=== PATIENT | male | born 1955 | race Caucasian/White ===

== ENCOUNTER 2021-12-05 | Inpatient (IN) | payer MEDICARE, MEDICAID ==
[~2021-12-05] VITALS: Ht 177.8 cm; Wt 100.1 kg
[~2021-12-05] MED LIST: ASPI-999 PO; ATOR80TA76 PO; CLOP75TA28 PO; LISI20TA26 PO; METF-397 PO; METO50TA7 PO; PARO30TA3 PO; RANO500T3 PO
[2021-12-05] MEDS ORDERED: NS IV 1000 ML 0 ML ONE (00:25)
[2021-12-05] MEDS ORDERED: NS IV 1000 ML 1,000 ML IV STA (00:25)
[2021-12-05] MEDS ORDERED: HEParin DRIP 25000 UNIT/500ML 500 ML IV ONE (00:29)
[2021-12-05 00:30] LABS: BASOPHILS # (AUTO) 0.1 10^3/uL (0.0-0.1); BASOPHILS % (AUTO) 1 % (0-10); EOSINOPHILS # (AUTO) 0.6 10^3/uL (0.0-0.3); EOSINOPHILS % (AUTO) 7 % (0-10); HEMATOCRIT 39 % (40-54); LYMPHOCYTES # (AUTO) 2.1 10^3/uL (1.0-4.0); LYMPHOCYTES % (AUTO) 25 % (12-44); MEAN CORPUSCULAR HEMOGLOBIN 29 pg (25-34); MEAN CORPUSCULAR HGB CONC 33 g/dL (32-36); MEAN CORPUSCULAR VOLUME 86 fL (80-99); MEAN PLATELET VOLUME 11.7 fL (9.0-12.2); MONOCYTES # (AUTO) 0.7 10^3/uL (0.0-1.0); MONOCYTES % (AUTO) 8 % (0-12); NEUTROPHILS % (AUTO) 59 % (42-75); PLATELET COUNT 234 10^3/uL (130-400); WHITE BLOOD COUNT 8.5 10^3/uL (4.3-11.0)
[2021-12-05] MEDS ORDERED: HEParin 1000 UNIT/ML (10ML VIAL) FOR BOLUS IV PRN ×2 (00:30→04:00)
[2021-12-05] MEDS ORDERED: ASPIRIN 81 MG CHEW (CHILDREN'S ASA) PO ONE (00:30)
[2021-12-05 00:32] LABS: PROTHROMBIN TIME PATIENT 13.6 SEC (12.2-14.7)
[2021-12-05] MEDS: HEParin DRIP 25000 UNIT/500ML 500 ML IV SCH ×2 (00:35→02:03)
--- NOTE | 2021-12-05 00:37 | ED Chest Pain ---
General Chief Complaint: Chest Pain Stated Complaint: CHEST PAIN Source: patient (ALFRED HERNANDEZ MD) History of Present Illness Date Seen by Provider: Dec 05, 2021 Time Seen by Provider: 00:06 Initial Comments 66-year-old male presenting with complaints of chest pain. He states that he has been having chest pain off and on for the last day or 2. He admitted having more constant pain since noon on Sunday but he is inconsistent in his times and complaints. He had been out fishing and admits to smoking marijuana. He did take a nitroglycerin pill around 8 PM. He did take his regular nighttime meds including a sleeping pill. He was continued to have chest pain and with a history of prior coronary artery disease with bypass and stenting he was finally brought to the emergency department by his family. He denies having any nausea, diaphoresis, increased shortness of breath. He states that the pain he is having feels similar to when he had to have a stent placed. His last stent was placed about 3 years ago in [place] but he cannot remember the repairer general name Timing/Duration: intermittent Severity/Quality: severe Location: substernal Prior CP/Workup: cardiac cath, heart attack, other (bypass and stenting) ASA po RAC SPECIALIST: Yes NTG SL RAC SPECIALIST: Yes (1 pill about 1999) Associated Symptoms: No abdominal pain, No back pain, No diaphoresis; dizziness; No edema; fatigue; No fever/chills, No headache, No heartburn, No nausea/vomiting, No rash, No shortness of breath, No syncope (ALFRED HERNANDEZ MD) Allergies and Home Medications Allergies Coded Allergies: No Known Drug Allergies (Unverified , 12/05/21) Patient Home Medication List Home Medication List Reviewed: Yes (ALFRED HERNANDEZ MD) Aspirin (Aspirin) 81 Mg Tab.chew, 81 MG PO DAILY, (Reported) Entered as Reported by: HARJINDER CHE on 05/02/19 1219 Aspirin (Aspirin EC) 81 Mg Tablet.dr, 81 MG PO DAILY, (Reported) Entered as Reported by: RAYMOND HESTER on 12/05/21 1321 Last Action: Reviewed Atorvastatin Calcium (Atorvastatin Calcium) 80 Mg Tablet, 80 MG PO DAILY, (Reported) Entered as Reported by: HARJINDER CHE on 05/02/19 1219 Atorvastatin Calcium (Atorvastatin Calcium) 80 Mg Tablet, 80 MG PO HS, (Reported) Entered as Reported by: RAYMOND HESTER on 12/05/211320 Last Action: Reviewed Clopidogrel Bisulfate (Clopidogrel) 75 Mg Tablet, 75 MG PO DAILY, (Reported) Entered as Reported by: HARJINDER CHE on 05/02/191218 Clopidogrel Bisulfate (Clopidogrel) 75 Mg Tablet, 75 MG PO DAILY, (Reported) Entered as Reported by: RAYMOND HESTER on 12/05/211320 Last Action: Reviewed Cyclobenzaprine HCl (Cyclobenzaprine HCl) 10 Mg Tablet, 10 MG PO BID PRN for MUSCLE SPASMS, (Reported) Entered as Reported by: RAYMOND HESTER on 12/05/211320 Last Action: Reviewed Lisinopril (Lisinopril) 20 Mg Tablet, 20 MG PO DAILY, (Reported) Entered as Reported by: HARJINDER CHE on 05/02/191218 Lisinopril (Lisinopril) 30 Mg Tablet, 30 MG PO DAILY, (Reported) Entered as Reported by: RAYMOND HESTER on 12/05/211320 Last Action: Reviewed Metformin HCl (Metformin HCl) 500 Mg Tablet, 500 MG PO BID, (Reported) Entered as Reported by: HARJINDER CHE on 05/02/191218 Metformin HCl (Metformin HCl) 500 Mg Tablet, 500 MG PO BID, (Reported) Entered as Reported by: RAYMOND HESTER on 12/05/211320 Last Action: Reviewed Metoprolol Succinate (Metoprolol Succinate) 50 Mg Tab.er.24h, 50 MG PO DAILY, (Reported) Entered as Reported by: HARJINDER CHE on 05/02/191218 Metoprolol Succinate (Metoprolol Succinate) 50 Mg Tab.er.24h, 50 MG PO DAILY, (Reported) Entered as Reported by: RAYMOND HESTER on 12/05/211320 Last Action: Reviewed Paroxetine HCl (Paroxetine HCl) 30 Mg Tablet, 30 MG PO DAILY, (Reported) Entered as Reported by: HARJINDER CHE on 05/02/191218 Paroxetine HCl (Paroxetine HCl) 30 Mg Tablet, 30 MG PO DAILY, (Reported) Entered as Reported by: RAYMOND HESTER on 7/25/22 1321 Last Action: Reviewed Ranolazine (Ranexa) 500 Mg Tab.er.12h, 500 MG PO BID, (Reported) Entered as Reported by: HARJINDER CHE on 05/02/19 1219 Review of Systems Review of Systems Constitutional: No chills, No fever EENTM: No Symptoms Reported Respiratory: No Symptoms Reported Cardiovascular: See HPI, Chest Pain Gastrointestinal: No Symptoms Reported Genitourinary: No Symptoms Reported Musculoskeletal: no symptoms reported Skin: no symptoms reported Psychiatric/Neurological: No Symptoms Reported (ALFRED HERNANDEZ MD) Past Qoxmela-Onyael-Faznwv Hx Patient Social History Tobacco Use?: Yes Tobacco type used: Cigarettes Smoking Status: Current Everyday Smoker Substance use?: Yes Substance type: Marijuana Alcohol Use?: No Pt feels they are or have been: No (ALFRED HERNANDEZ MD) Immunizations Up To Date First/Initial COVID19 Vaccinat: date? Second COVID19 Vaccination Jimmie: date? COVID19 Vaccine Mine Supervisor: Moderna? (ALFRED HERNANDEZ MD) Past Medical History Surgery/Hospitalization HX: triple bypass, cardiac stents x 6, DM, (ALFRED HERNANDEZ MD) Physical Exam Vital Signs Vital Signs - First Documented 12/05/21 12/05/21 00:00 00:35 Temp 36.4 Pulse 87 Resp 22 B/P (MAP) 137/100 (112) Pulse Ox 95 O2 Delivery Room Air O2 Flow Rate 2.00 (GEOVANY PANDEY MD) Vital Signs Capillary Refill : Less Than 3 Seconds (ALFRED HERNANDEZ MD) Height, Weight, BMI Height: '" Weight: lbs. oz. kg; BMI Method: General Appearance: Chronically ill HEENT: PERRL/EOMI, Pharynx Normal Neck: Full Range of Motion, Supple Respiratory: Chest Non Tender, Lungs Clear Cardiovascular: Regular Rate, Rhythm, Normal Peripheral Pulses Gastrointestinal: Normal Bowel Sounds, No Pulsatile Mass, Non Tender, Soft Rectal: Deferred Extremity: Normal Capillary Refill, Normal Inspection, No Pedal Edema Neurologic/Psychiatric: Alert, Oriented x3 Skin: Normal Color, Warm/Dry (ALFRED HERNANDEZ MD) Critical Care Note Critical Care Start Time: 01:24 Stop Time: 02:47 Total Time (minutes) 30 minutes critical care time in the evaluation and management of this patient with chest pain, hypotension. Time includes initial evaluation and management of hypotension with fluid boluses, examination, review and interpretation of laboratory studies, discussion with cardiology, discussion with patient, review of the chest x-ray, discussion with hospitalist/admitting provider. (GEOVANY PANDEY MD) Progress/Results/Core Measures Results/Orders Lab Results Laboratory Tests Test 12/05/21 00:15 12/05/21 02:20 Range/Units White Blood Count 8.5 7.3 4.3-11.0 10^3/uL Red Blood Count 4.54 3.85 L 4.30-5.52 10^6/uL Hemoglobin 13.0 L 11.2 L 13.3-17.7 g/dL Hematocrit 39 L 34 L 40-54 % Mean Corpuscular Volume 86 88 80-99 fL Mean Corpuscular Hemoglobin 29 29 25-34 pg Mean Corpuscular Hemoglobin Concent 33 33 32-36 g/dL Red Cell Distribution Width 15.0 H 15.1 H 10.0-14.5 % Platelet Count 234 177 130-400 10^3/uL Mean Platelet Volume 11.7 11.0 9.0-12.2 fL Immature Granulocyte % (Auto) 0 % Neutrophils (%) (Auto) 59 42-75 % Lymphocytes (%) (Auto) 25 12-44 % Monocytes (%) (Auto) 8 0-12 % Eosinophils (%) (Auto) 7 0-10 % Basophils (%) (Auto) 1 0-10 % Neutrophils # (Auto) 5.0 1.8-7.8 10^3/uL Lymphocytes # (Auto) 2.1 1.0-4.0 10^3/uL Monocytes # (Auto) 0.7 0.0-1.0 10^3/uL Eosinophils # (Auto) 0.6 H 0.0-0.3 10^3/uL Basophils # (Auto) 0.1 0.0-0.1 10^3/uL Immature Granulocyte # (Auto) 0.0 0.0-0.1 10^3/uL Prothrombin Time 13.6 14.9 H 12.2-14.7 SEC INR Comment 1.0 1.1 0.8-1.4 Activated Partial Thromboplast Time 26 68 H 24-35 SEC Sodium Level 138 135-145 MMOL/L Potassium Level 5.7 H 3.6-5.0 MMOL/L Chloride Level 102 98-107 MMOL/L Carbon Dioxide Level 24 21-32 MMOL/L Anion Gap 12 5-14 MMOL/L Blood Urea Nitrogen 32 H 7-18 MG/DL Creatinine 3.43 H 0.60-1.30 MG/DL Estimat Glomerular Filtration Rate 19 BUN/Creatinine Ratio 9 Glucose Level 122 H 70-105 MG/DL Calcium Level 10.7 H 8.5-10.1 MG/DL Corrected Calcium 8.5-10.1 MG/DL Magnesium Level 1.8 1.6-2.4 MG/DL Total Bilirubin 0.5 0.1-1.0 MG/DL Aspartate Amino Transf (AST/SGOT) 19 5-34 U/L Alanine Aminotransferase (ALT/SGPT) 17 0-55 U/L Alkaline Phosphatase 132 40-136 U/L Myoglobin 358.0 H <72.0 NG/ML Troponin I < 0.30 <0.30 NG/ML Pro-B-Type Natriuretic Peptide 193.3 H <125.0 PG/ML Total Protein 7.7 6.4-8.2 GM/DL Albumin 4.6 H 3.2-4.5 GM/DL Lipase 55 8-78 U/L (GEOVANY PANDEY MD) My Orders Orders - GEOVANY PANDEY MD D50w (Emergency) Syringe (Dextrose 50% 5 (12/05/21 01:45) Insulin (Regular) Human (Novolin R (Per (12/05/21 01:45) Sodium Bicarbonate 8.4% Syr (Sodium Bica (12/05/21 01:45) Chest 1 View, Ap/Pa Only (12/05/21 01:55) Accucheck Prn (12/05/21 01:58) Partial Thromboplastin Time (12/05/21 01:59) Protime With Inr (12/05/21 01:59) Cbc No Diff (12/05/21 01:59) Cbc No Diff (12/08/21 05:00) Cbc No Diff (12/11/21 05:00) Platelet Count (12/08/21 05:00) Platelet Count (12/09/21 05:00) Platelet Count (12/10/21 05:00) Platelet Count (12/11/21 05:00) Platelet Count (12/12/21 05:00) Platelet Count (12/13/21 05:00) Platelet Count (12/14/21 05:00) Platelet Count (12/15/21 05:00) Partial Thromboplastin Time (12/05/21 05:59) Protime With Inr (12/08/21 05:00) Initiate Heparin Acs Protocol (12/05/21 01:59) Ns Iv 1000 Ml (Sodium Chloride 0.9%) (12/05/21 02:15) Ua Culture If Indicated (12/05/21 02:11) Ns Iv 1000 Ml (Sodium Chloride 0.9%) (12/05/21 02:45) Sodium Polystyrene Powder (Kayexalate P (12/05/21 02:45) (GEOVANY PANDEY MD) Medications Given in ED (GEOVANY PANDEY MD) Vital Signs/I&O 12/05/21 12/05/21 12/05/21 00:00 00:35 00:45 Temp 36.4 36.4 Pulse 87 89 Resp 22 14 B/P (MAP) 137/100 (112) 84/49 (61) Pulse Ox 95 95 94 O2 Delivery Room Air Nasal Cannula Nasal Cannula O2 Flow Rate 2.00 2.00 (GEOVANY PANDEY MD) Progress Progress Note : Progress Note EKG was obtained because of complain of chest pain. The tracing was showing ST elevation in the inferior leads. Since he was having pain with history of heart disease and stents and complains that it feels similar to when he had stents placed before will call cardiology to see about activating the Rescue Instructor. Administer aspirin 324 mg p.o. x1 and started on heparin by ACS protocol. [address] Lan for cardiology about the patient and that he had a history of heart disease and stenting as well as bypass and it has been over 3 years since he last seen repairer general in [place]. With him having pain and some ST elevation inferior leads we will have him go to [place] as the closest Rescue Instructor for an initial evaluation and stabilization. After speaking with Dr. Lan the patient's blood pressure did decrease but he was still awake and talking. He had his blood pressure drop down to 86-90 systolic. Normal saline 1 L bolus was started to help with hydration and his blood pressure. By the time he was leaving with EMS his blood pressure was up to 96 systolic. No prior tracings available for comparison on his ECG (ALFRED HERNANDEZ MD) Progress Note : Time: 01:24 Progress Note Patient care assumed after transfer from [facility] emergency room. Dr. Kurtis nuñez, repairer general in the ED at patient arrival. He has reviewed the EKG and believes that this EKG and the patient's story did not meet criteria for emergent heart catheterization. Patient has no chest pain currently. He states his pain started 3 or 4 days ago it has been constant.. His family members insisted that he go to the emergency department at [facility] for evaluation. He did have morphine prior to arrival. His troponin is negative. He is not anemic. He does have acute kidney injury with a creatinine of 3. His potassium is elevated at 5.7. He does have T wave changes on the EKG, QRS is normal. He has a history of coronary artery bypass grafting many years ago with subsequent stents. He has a history of diabetes and hypertension. He states he is on daily aspirin as well as blood thinners. He works building [employer]. States that he drinks lots of fluids. He denies any leg swelling or calf cramping. No nausea vomiting or diarrhea. No urinary complaints. No headache. No shortness of breath. He is COVID vaccinated without a booster. He denies any sick contacts with COVID. Patient states he had labs done 1 month ago at his clinic visit with [facility] in [place], [place]. He was called and told all his labs were "normal". No history of kidney disease that he is aware of. Physical exam Generally alert, no acute distress. HEENT, dry mucous membranes. Neck: No JVD Cardiac: No murmur, regular rhythm at 80 beats a minute; 2+ radial pulses which does call into question the 75 systolic blood pressure were getting Lungs: Clear to auscultation bilaterally no distress Abdomen: Soft, nontender no pulsatile masses Extremities: No edema or calf tenderness Neuro: Alert and oriented, following commands Skin: Warm and dry He has 1 L of normal saline finishing up on arrival with about 200 cc left. His blood pressure is 75 systolic. He is not tachycardic he is not hypoxic. (GEOVANY PANEDY MD) Initial ECG Impression Date: Dec 05, 2021 Initial ECG Impression Time: 00:07 Initial ECG Rate: 85 Initial ECG Rhythm: Normal Sinus Initial ECG Comparisson: No Previous ECG Available Comment Sinus rhythm with a heart rate of 85 bpm. LA interval [address] elevation in the inferior leads. QT interval 308 ms with a QTc interval 351 ms. There is no prior tracing available for comparison. (ALFRED HERNANDEZ MD) EKG : EKG Time: 01:16 Rate: 80 Rhythm: Normal Sinus Intervals LA interval 167 QRS [address]Tc [address] elevation in leads II,. No reciprocal changes. No ectopy (GEOVANY PANDEY MD) Diagnostic Imaging Diagonstic Imaging: Xray Plain Films/CT/US/NM/MRI: chest Comments chest xray: interpreted by me - no infiltrates (GEOVANY PANDEY MD) Departure Communication (Admissions) Time/Spoke to Admitting Phy: 02:[address] Pastrana Time/Spoke to Consulting Phy: 01:[address] Lan (GEOVANY PANDEY MD) Impression Primary Impression: Acute renal failure Qualified Codes: N17.9 - Acute kidney failure, unspecified Additional Impressions: Hyperkalemia Chest pain Qualified Codes: R07.9 - Chest pain, unspecified History of coronary artery disease Disposition: ADMITTED INPATIENT Condition: Critical Admissions Decision to Admit Reason: Admit from ER (General) Decision to Admit/Date: Dec 05, 2021 Time/Decision to Admit Time: 01:29 (GEOVANY PANDEY MD) ALFRED HERNANDEZ MD Dec 05, 2021 00:37 GEOVANY PANDEY MD Dec 05, 2021 01:29
[2021-12-05 00:38] LABS: ALKALINE PHOSPHATASE 132 U/L (40-136); BILIRUBIN,TOTAL 0.5 MG/DL (0.1-1.0); BUN/CREATININE RATIO 9; CALCIUM 10.7 MG/DL (8.5-10.1); CARBON DIOXIDE 24 MMOL/L (21-32); CHLORIDE 102 MMOL/L (98-107); CREATININE SERUM 3.43 MG/DL (0.60-1.30); GFR ESTIMATED 19; GLUCOSE 122 MG/DL (70-105); POTASSIUM 5.7 MMOL/L (3.6-5.0); SODIUM 138 MMOL/L (135-145)
[2021-12-05 00:39] LABS: ALANINE AMINOTRANSFERASE 17 U/L (0-55); ALBUMIN 4.6 GM/DL (3.2-4.5); TOTAL PROTEIN 7.7 GM/DL (6.4-8.2)
[2021-12-05] MEDS ORDERED: LIDOCAINE 1% INJ 20 ML VIAL ONE (00:44)
[2021-12-05] MEDS ORDERED: NS IV 1000 ML 1,000 ML ONE (00:44)
[2021-12-05] MEDS ORDERED: HEParin (CATH LAB) 0 ML IV ONE (00:44)
[2021-12-05] MEDS ORDERED: VERAPAMIL 5 MG/2 ML (CALAN) VIAL IV ONE (00:45)
[2021-12-05] MEDS ORDERED: MIDAZOLAM 5 MG/5 ML (VERSED) VIAL ONE (00:45)
[2021-12-05] MEDS ORDERED: fentaNYL INJ 100 MCG/2 ML AMP ONE (00:45)
[2021-12-05] MEDS ORDERED: HEParin 1000 UNIT/ML (10ML VIAL) FOR BOLUS ONE (00:45)
[2021-12-05] MEDS ORDERED: NITRO DRIP 25000 MCG/D5W 0 ML IV ONE (00:45)
[2021-12-05 00:55] LABS: LIPASE 55 U/L (8-78); MAGNESIUM 1.8 MG/DL (1.6-2.4)
--- NOTE | 2021-12-05 01:25 | Consultation-Cardiology ---
HPI-Cardiology Cardiology Consultation: Date of Consultation 12/05/21 Date of Admission 12/05/21 Attending Physician Admitting Physician Admitting Physician: Attending Physician: Sarina Lan Jr, MD Consulting Physician SARINA LAN JR, MD HPI: Time Seen by a Provider: 01:25 Chief Complaint: REASON FOR CONSULTATION: Chest pain and abnormal electrocardiogram. I had the pleasure of seeing Daniel in the emergency room at [facility] in [place], [place] this morning. He has a known history of coronary artery disease with coronary bypass surgery x3 in approximately 1991 followed by several coronary stent procedures. He normally follows with a title curative specialist in [place] but has not seen that title curative specialist in over 3 years. He has been having some dyspnea on exertion and lightheaded spells for the past few months. He saw his primary provider in [place], [place] about 1 month ago and had some blood work done which she was later told was normal. No additional testing was planned. Then for the past couple of days he has been having intermittent episodes of substernal chest tightness with radiation to both arms. This would make him feel short of breath. Initially these were short-lived. However, today these are lasting longer and more severe. He did not seek immediate medical attention. Then this evening, due to ongoing chest discomfort, he went to [place] emergency room at the urging of his son. His initial electrocardiogram was flagged by the computer as an inferior STEMI and a code STEMI was called. I was also notified by the emergency room provider at that time. However, the emergency room provider did not asked me to review the electrocardiogram. The patient was then brought to our hospital by ambulance. He states the chest pain at its worst was 8/10. When he arrived in our emergency room the chest pain was 5/10 but within a few minutes the chest discomfort subsided. He denies paroxysmal nocturnal dyspnea, orthopnea, palpita tions, syncope, or ankle edema. 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 He does not know of any previous history of kidney disease. Certain portions of this document may have been dictated utilizing voice recognition technology. Inherent to this technology, typographical and grammatical errors may exist. As much as I am diligent to identify and correct these mistakes, some errors may remain in the document. Review of Systems-Cardiology Review of Systems Other comments Review of 10 organ systems is as per the history of present illness, otherwise negative. MRG-Qdbidu-Kotrat Hx Patient Social History Smoking Status: Current Everyday Smoker Have you traveled recently?: No Alcohol Use?: No Substance type: Marijuana Pt feels they are or have been: No Tobacco type used: Cigarettes Past Medical History PMH As described under Assessment. Allergies and Home Medications Allergies Coded Allergies: No Known Drug Allergies (Unverified , 12/05/21) Patient Home Medication List Home Medication List Reviewed: Yes Exam Vital Signs Vital Signs Date Time Temp Pulse Resp B/P (MAP) Pulse Ox O2 Delivery O2 Flow Rate FiO2 12/05/21 00:35 95 Nasal Cannula 2.00 12/05/21 00:00 36.4 87 22 137/100 (112) Physical Exam General: Alert. Mild distress due to chest pain which later subsided. Well nourished and appears stated age. Eye: Extraocular movements are intact. Conjunctivae are clear. There are no xanthelasma. HENT: Normocephalic. Atraumatic. Carotid pulsations 2/2 without bruits. Neck: Jugular venous pressure does not appear elevated. No thyromegaly appreciated. Respiratory: Lungs are clear to auscultation. Respirations are non-labored. Breath sounds are equal. Symmetrical chest wall expansion. Cardiovascular: Normal rate. Regular rhythm. No murmur. No gallop. Point of maximal impulse is not appear displaced. Good pulses equal in all extremities. No edema. Gastrointestinal: Soft. Normal bowel sounds. Skin: Skin turgor is normal. There is no pallor. Musculoskeletal: No kyphosis or scoliosis appreciated. Neurologic: Alert and oriented to person, place, time. Cranial nerves 3-12 appear grossly intact. The patient has good motor tone strength in the upper and lower extremities bilaterally. Psychiatric: Cooperative. Appropriate mood & affect. Labs Laboratory Tests Test 12/05/21 00:15 Range/Units White Blood Count 8.5 4.3-11.0 10^3/uL Red Blood Count 4.54 4.30-5.52 10^6/uL Hemoglobin 13.0 L 13.3-17.7 g/dL Hematocrit 39 L 40-54 % Mean Corpuscular Volume 86 80-99 fL Mean Corpuscular Hemoglobin 29 25-34 pg Mean Corpuscular Hemoglobin Concent 33 32-36 g/dL Red Cell Distribution Width 15.0 H 10.0-14.5 % Platelet Count 234 130-400 10^3/uL Mean Platelet Volume 11.7 9.0-12.2 fL Immature Granulocyte % (Auto) 0 % Neutrophils (%) (Auto) 59 42-75 % Lymphocytes (%) (Auto) 25 12-44 % Monocytes (%) (Auto) 8 0-12 % Eosinophils (%) (Auto) 7 0-10 % Basophils (%) (Auto) 1 0-10 % Neutrophils # (Auto) 5.0 1.8-7.8 10^3/uL Lymphocytes # (Auto) 2.1 1.0-4.0 10^3/uL Monocytes # (Auto) 0.7 0.0-1.0 10^3/uL Eosinophils # (Auto) 0.6 H 0.0-0.3 10^3/uL Basophils # (Auto) 0.1 0.0-0.1 10^3/uL Immature Granulocyte # (Auto) 0.0 0.0-0.1 10^3/uL Prothrombin Time 13.6 12.2-14.7 SEC INR Comment 1.0 0.8-1.4 Activated Partial Thromboplast Time 26 24-35 SEC Sodium Level 138 135-145 MMOL/L Potassium Level 5.7 H 3.6-5.0 MMOL/L Chloride Level 102 98-107 MMOL/L Carbon Dioxide Level 24 21-32 MMOL/L Anion Gap 12 5-14 MMOL/L Blood Urea Nitrogen 32 H 7-18 MG/DL Creatinine 3.43 H 0.60-1.30 MG/DL Estimat Glomerular Filtration Rate 19 BUN/Creatinine Ratio 9 Glucose Level 122 H 70-105 MG/DL Calcium Level 10.7 H 8.5-10.1 MG/DL Corrected Calcium 8.5-10.1 MG/DL Magnesium Level 1.8 1.6-2.4 MG/DL Total Bilirubin 0.5 0.1-1.0 MG/DL Aspartate Amino Transf (AST/SGOT) 19 5-34 U/L Alanine Aminotransferase (ALT/SGPT) 17 0-55 U/L Alkaline Phosphatase 132 40-136 U/L Myoglobin 358.0 H <72.0 NG/ML Troponin I < 0.30 <0.30 NG/ML Pro-B-Type Natriuretic Peptide 193.3 H <125.0 PG/ML Total Protein 7.7 6.4-8.2 GM/DL Albumin 4.6 H 3.2-4.5 GM/DL Lipase 55 8-78 U/L ECG Impression ECG Comment Electrocardiogram from [facility] showed sinus rhythm with probable old inferior myocardial infarction and borderline inferior ST elevation, mainly in theII. Does not meet criteria for STEMI. Electrocardiogram from our emergency room shows similar findings. Diagnosis/Problems Diagnosis/Problems (1) Coronary artery disease involving inupiat coronary artery with angina pectoris Assessment & Plan: He is having symptoms concerning for possible unstable angina. His initial electrocardiogram was flagged by the computer as an inferior STEMI but in actuality, the tracing did not meet criteria for STEMI. His chest discomfort seems to have subsided. His initial troponin level was undetectable despite having intermittent chest discomfort for the past few days. The patient also has hypokalemia and acute kidney injury which are both relative contraindications to cardiac catheterization. I do recommend the patient be admitted to the hospital. He should have serial troponin levels. I recommend we start him on weight-based heparin infusion protocol. He has been having some intermittently low blood pressures so I will hold off on giving him beta-chance. I will order statin medication. (2) Acute kidney injury Assessment & Plan: His creatinine level is markedly elevated. We do not have a baseline. This is a relative contraindication to cardiac catheterization. He does not know of any previous history of kidney disease. He will need some intravenous hydration. His renal function will need to be followed closely. I do not see any urgent need for hemodialysis at this point in time. I suspect he can be managed in our hospital for the time being. (3) Primary hypertension Assessment & Plan: The external medication profile appears as though he was taking metoprolol succinate and lisinopril. I will resume metoprolol once his blood pressure improves. We will need to hold off on starting LESLEY inhibitor until his renal function improves. (4) Mixed hyperlipidemia Assessment & Plan: Resume atorvastatin 80 mg once daily which she was taking at home. (5) Hyperkalemia Status: Acute Assessment & Plan: The emergency room provider will be placing some orders to acutely treat hyperkalemia. As his renal function improves, the potassium level should normalize. (6) Cigarette smoker Assessment & Plan: He needs to quit smoking. SARINA LAN JR, MD Dec 05, 2021 01:25
[2021-12-05] MEDS ORDERED: DEXTROSE 50% 50 ML (IMS) SYR IV ONE (01:45)
[2021-12-05] MEDS ORDERED: inSUlin (REGULAR) HUMAN 1 UNIT/0.01 ML (CHARGE PER UNIT) IV ONE (01:45)
[2021-12-05] MEDS ORDERED: SODIUM BICARB 8.4% 50 MEQ/50 ML (ABBOTT) SYR IV ONE (01:45)
[2021-12-05] MEDS ORDERED: HEParin DRIP 25000 UNIT/500ML 500 ML IV SCH ×2 (02:00→04:00)
[2021-12-05] MEDS ORDERED: NS IV 1000 ML 1,000 ML IV SCH ×2 (02:15→02:45)
[2021-12-05 02:28] LABS: HEMATOCRIT 34 % (40-54); HEMOGLOBIN 11.2 g/dL (13.3-17.7); MEAN CORPUSCULAR HEMOGLOBIN 29 pg (25-34); MEAN CORPUSCULAR HGB CONC 33 g/dL (32-36); MEAN CORPUSCULAR VOLUME 88 fL (80-99); PLATELET COUNT 177 10^3/uL (130-400); WHITE BLOOD COUNT 7.3 10^3/uL (4.3-11.0)
[2021-12-05 02:39] LABS: INR 1.1 (0.8-1.4); PROTHROMBIN TIME PATIENT 14.9 SEC (12.2-14.7)
[2021-12-05] MEDS ORDERED: SODIUM POLYSTYRENE POWDER 15 GM BOTTLE PO ONE (02:45)
[2021-12-05] MEDS ORDERED: RT-HYPERTONIC SALINE 3% 4 ML NEB INH PRN (03:00)
[2021-12-05] MEDS ORDERED: ONDANSETRON 4 MG/2 ML (SDV) Z0FRAN IV PRN (04:00)
[2021-12-05] MEDS ORDERED: RT-ALBUTEROL SULF 2.5 MG/3 ML PRE-MIX VIAL INH PRN (04:30)
[2021-12-05] MEDS: NS IV 1000 ML 1,000 ML IV SCH ×4 (04:38→20:12)
[2021-12-05] MEDS: POTASSIUM CL 10MEQ/50ML IVPB 50 ML IV SCH (05:34)
[2021-12-05] MEDS: MAGNESIUM 1 GM/100 ML IVPB 100 ML IV SCH (05:35)
[2021-12-05] MEDS: KCL 20 MEQ TAB (K-DUR) PO SCH (05:35)
--- NOTE | 2021-12-05 05:38 | Diagnostic Imaging Report ---
Indication: Chest pain Portable chest 1:56 AM There are postoperative changes from a median sternotomy. Heart size and pulmonary vascularity are normal. Lungs are clear. There are no effusions or pneumothoraces. IMPRESSION: No acute abnormalities in the chest Dictated by: Dictated on workstation # [id number]
[2021-12-05 05:41] LABS: BASOPHILS # (AUTO) 0.1 10^3/uL (0.0-0.1); BASOPHILS % (AUTO) 1 % (0-10); EOSINOPHILS # (AUTO) 0.8 10^3/uL (0.0-0.3); EOSINOPHILS % (AUTO) 10 % (0-10); HEMATOCRIT 35 % (40-54); HEMOGLOBIN 11.5 g/dL (13.3-17.7); LYMPHOCYTES # (AUTO) 3.1 10^3/uL (1.0-4.0); LYMPHOCYTES % (AUTO) 37 % (12-44); MEAN CORPUSCULAR HEMOGLOBIN 29 pg (25-34); MEAN CORPUSCULAR HGB CONC 33 g/dL (32-36); MEAN CORPUSCULAR VOLUME 89 fL (80-99); MEAN PLATELET VOLUME 10.7 fL (9.0-12.2); MONOCYTES # (AUTO) 0.8 10^3/uL (0.0-1.0); MONOCYTES % (AUTO) 9 % (0-12); NEUTROPHILS # (AUTO) 3.5 10^3/uL (1.8-7.8); NEUTROPHILS % (AUTO) 43 % (42-75); PLATELET COUNT 181 10^3/uL (130-400); WHITE BLOOD COUNT 8.3 10^3/uL (4.3-11.0)
[2021-12-05 05:52] LABS: ALBUMIN 3.7 GM/DL (3.2-4.5); CHLORIDE 108 MMOL/L (98-107); POTASSIUM 4.4 MMOL/L (3.6-5.0); SODIUM 140 MMOL/L (135-145)
[2021-12-05 05:53] LABS: CALCIUM 8.8 MG/DL (8.5-10.1)
[2021-12-05 05:55] LABS: GLUCOSE 74 MG/DL (70-105); TOTAL PROTEIN 6.2 GM/DL (6.4-8.2)
[2021-12-05 05:56] LABS: BILIRUBIN,TOTAL 0.5 MG/DL (0.1-1.0); CARBON DIOXIDE 20 MMOL/L (21-32)
[2021-12-05 05:58] LABS: ALKALINE PHOSPHATASE 102 U/L (40-136); CREATININE SERUM 3.43 MG/DL (0.60-1.30); GFR ESTIMATED 19; PHOSPHORUS 4.6 MG/DL (2.3-4.7)
[2021-12-05 05:59] LABS: BUN/CREATININE RATIO 10
[2021-12-05 06:01] LABS: ALANINE AMINOTRANSFERASE 14 U/L (0-55); MAGNESIUM 1.7 MG/DL (1.6-2.4)
[2021-12-05] MEDS ORDERED: NS IV 500 ML 500 ML IV ONE (07:15)
[2021-12-05] MEDS ORDERED: NS 100 ML (IVPB) BAG IV ONE (07:15)
[2021-12-05] MEDS ORDERED: ANTACID SUSP 30 ML UDC (MYLANTA) PO ONE (09:00)
[2021-12-05] MEDS ORDERED: LIDOCAINE 2% VISCOUS 15 ML UDC PO ONE (09:00)
[2021-12-05] MEDS: ASPIRIN 81 MG CHEW (CHILDREN'S ASA) PO SCH (09:02)
[2021-12-05] MEDS: PANTOPRAZOLE 40 MG (PROTONIX) TAB PO SCH (09:07)
[2021-12-05 10:18] LABS: CLARITY,URINE CLEAR; COLOR,URINE ORANGE; GLUCOSE, URINE (UA) NEGATIVE (NEGATIVE); KETONES,URINE NEGATIVE (NEGATIVE); LEUKOCYTE ESTERASE ,URINE NEGATIVE (NEGATIVE); NITRITE,URINE NEGATIVE (NEGATIVE); PH,URINE 5.5 (5-9); PROTEIN,URINE 2+ (NEGATIVE)
[2021-12-05 10:44] LABS: BILIRUBIN,URINE NEGATIVE (NEGATIVE); CLARITY,URINE CLEAR; COLOR,URINE YELLOW; GLUCOSE, URINE (UA) NEGATIVE (NEGATIVE); KETONES,URINE NEGATIVE (NEGATIVE); LEUKOCYTE ESTERASE ,URINE 1+ (NEGATIVE); NITRITE,URINE NEGATIVE (NEGATIVE); PH,URINE 5.5 (5-9); PROTEIN,URINE 1+ (NEGATIVE)
[2021-12-05] MEDS: RT-ALBUTEROL SULF 2.5 MG/3 ML PRE-MIX VIAL INH SCH ×3 (10:52→21:25)
--- NOTE | 2021-12-05 11:32 | History & Physical-Hospitalist ---
YVONVinayTRANG MCFARLANE 12/05/21 1132: History of Present Illness HPI/Chief Complaint Daniel Cortez is a 66 yo male with known history of coronary artery disease with coronary bypass surgery x3, followed by several coronary stent procedures, and T2DM who was admitted for chest pain. He normally follows with a meter mechanic in [place] but has not seen that meter mechanic in over 3 years. He has been having some dyspnea on exertion and lightheaded spells for the past few months. He saw his primary provider in [place], [place] about 1 month ago and had some blood work done which she was later told was normal. No additional testing was planned. Then for the past couple of days he has been having intermittent episodes of substernal chest tightness with radiation to both arms. This would make him feel short of breath. Initially these were short-lived. However, yesterday these were lasting longer and more severe. He did not seek immediate medical attention. Then yesterday evening, due to ongoing chest discomfort, he went to [place] emergency room at the urging of his son. His initial electrocardiogram was flagged by the computer as an inferior STEMI and a code STEMI was called. This EKG was later determined to be an old inferior MS and did not meet criteria for STEMI. He states the chest pain at its worst was 8/10. When he arrived in our emergency room the chest pain was 5/10 but within a few minutes the chest discomfort subsided. He denies paroxysmal nocturnal dyspnea, orthopnea, palpitations, syncope, or ankle edema. 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 He does not know of any previous history of kidney disease. Today he denies any further episodes of chest pain or difficulty breathing. Source: patient, EMS notes reviewed Exam Limitations: no limitations Date Seen 12/05/21 Time Seen by a Provider: 10:30 Attending Physician No,Local Physician PCP Admitting Physician: Stefany Muñoz DO Attending Physician: Stefany Muñoz DO Referring Physician Date of Admission Dec 05, 2021 at 03:14 Home Medications & Allergies Home Medications Reviewed patient Home Medication Reconciliation performed by pharmacy medication reconciliations records technician and/or nursing. Patients Allergies have been reviewed. Allergies Allergies Coded Allergies No Known Drug Allergies (Unverified12/05/21) Past Gdgstcd-Hcuzbs-Gswcaq Hx Patient Social History Tobacco Use?: Yes Tobacco type used: Cigarettes Smoking Status: Current Everyday Smoker E-Cig or Vaping type used: Marijuana Substance use?: Yes Substance type: Marijuana Alcohol Use?: No Pt feels they are or have been: No Immunizations Up To Date First/Initial COVID19 Vaccinat: date? Second COVID19 Vaccination Jimmie: date? Current Status Advance Directives: No Communicates: Verbally Primary Language: Chilean Preferred Spoken Language: Chilean Is interpretation needed?: No Review of Systems Constitutional: No chills, No diaphoresis EENTM: No blurred vision, No double vision Respiratory: No cough Cardiovascular: see HPI, chest pain Gastrointestinal: No abdominal pain, No constipation, No diarrhea Genitourinary: No dysuria, No frequency Skin: No rash Physical Exam Physical Exam Vital Signs Vital Signs - First Documented 12/05/21 12/05/21 00:00 00:35 Temp 36.4 Pulse 87 Resp 22 B/P (MAP) 137/100 (112) Pulse Ox 95 O2 Delivery Room Air O2 Flow Rate 2.00 Capillary Refill : Less Than 3 Seconds Height, Weight, BMI Height: '" Weight: lbs. oz. kg; 30.33 BMI Method: General Appearance: No Apparent Distress HEENT: PERRL/EOMI, Moist Mucous Membranes Neck: Full Range of Motion, Normal Inspection, Supple Respiratory: Chest Non Tender, Lungs Clear, Normal Breath Sounds Cardiovascular: Regular Rate, Rhythm, No JVD, No Murmur Gastrointestinal: Non Tender, Soft Back: Normal Inspection, No CVA Tenderness Extremity: Normal Capillary Refill Neurologic/Psychiatric: Alert, Oriented x3 Skin: Normal Color, Warm/Dry Lymphatic: No Adenopathy Results Results/Procedures Labs Laboratory Tests 12/05/21 00:15 12/05/21 02:20 12/05/21 05:35 Patient resulted labs reviewed. Assessment/Plan Admission Diagnosis Unstable Angina Assessment and Plan 1) Unstable Angina * Cards following, appreciate recs * Troponin negative, trending today * EKG no sign of STEMI * Weight based heparin infusion protocol * Holding beta chance in setting of low blood pressure * Start statin * ASA 81 2) NINA * Nephrology consulted, appreciate recs * Cr 3.43 today (no baseline) * IVF and continue to monitor * Hold lisinopril * Ordered A1C, Urine P/C ratio, Urine Na, Urine Eosinophils, UA, and serum uric acid levels 3) T2DM * SSI Dispo: Continue care in ICU. Clinical Quality Measures AMI/AHF: ASA po Prior to arrival: Yes STEFANY MUÑOZ DO 12/06/21 0529: History of Present Illness HPI/Chief Complaint CC: Chest pain with acute kidney injury HPI: This is a 66 yr old male, previous bypass due to CAD. He presented with unstable angina after what was thought to be a STEMI. It ended up being hyperkalemia peaked T waves. Potassium was 5.7, that was treated and improved to 4.6 with IV fluids. Holding beta chance due to bradycardia. Creatinine was 3.43 prompting nephrology consult. Updated pt on plan Source: patient Exam Limitations: no limitations Past Jfofurg-Yupohj-Sakhbh Hx Patient Social History Marrital Status: Employed/Student: retired Smoking Status: Current Everyday Smoker Past Medical History Surgeries: CABG Coronary Artery Disease, High Cholesterol, Hypertension Renal Failure Review of Systems Constitutional: see HPI, dizziness Cardiovascular: chest pain Physical Exam Physical Exam General Appearance: No Apparent Distress, Chronically ill Eyes: Right Eye Normal Inspection, Right Eye PERRL HEENT: PERRL/EOMI, Normal ENT Inspection, Pharynx Normal, Moist Mucous Membranes Neck: Full Range of Motion, Normal Inspection, Non Tender Respiratory: Chest Non Tender, Lungs Clear, Normal Breath Sounds, No Accessory Muscle Use, No Respiratory Distress Cardiovascular: Regular Rate, Rhythm, No Edema, No Gallop, No JVD, No Murmur, Normal Peripheral Pulses Gastrointestinal: Normal Bowel Sounds, No Organomegaly, No Pulsatile Mass, Non Tender, Soft Back: Normal Inspection, No CVA Tenderness, No Vertebral Tenderness Extremity: Normal Capillary Refill, Normal Inspection, Normal Range of Motion, Non Tender, No Calf Tenderness, No Pedal Edema Neurologic/Psychiatric: Alert, Oriented x3, No Motor/Sensory Deficits, Normal Mood/Affect Skin: Normal Color, Warm/Dry Lymphatic: No Adenopathy Assessment/Plan Admission Diagnosis Unstable angina NINA on CKD Hyperkalemia CAD HTN HLP Plan: Monitor creat Nephrology appreciated Admission Status: Inpatient Order (span 2 midnights) Reason for Inpatient Admission: CP with NINA Diagnosis/Problems Diagnosis/Problems (1) Chest pain Status: Acute Qualifiers: Chest pain type: unspecified Qualified Codes: R07.9 - Chest pain, unspecified (2) History of coronary artery disease Status: Acute (3) Acute renal failure Status: Acute Qualifiers: Acute renal failure type: unspecified Qualified Codes: N17.9 - Acute kidney failure, unspecified (4) Hyperkalemia Status: Acute (5) Coronary artery disease involving [place]ct[place] coronary artery with angina pectoris (6) Mixed hyperlipidemia (7) Primary hypertension (8) Cigarette smoker Supervisory-Addendum Brief Verification & Attestation Participated in pt care: history, MDM, physical Personally performed: exam, history, MDM, supervision of care Care discussed with: Medical Student Procedures: n/a Results interpretation: Verified all documentation Verification and Attestation of Medical Student E/M Service A medical student performed and documented this service in my presence. I reviewed and verified all information documented by the medical student and made modifications to such information, when appropriate. I personally performed the physical exam and medical decision making. Stefany Muñoz, Dec 06, 2021,05:30 TRANG WILLARD Dec 05, 2021 11:32 STEFANY MUÑOZ DO Dec 06, 2021 05:29
[2021-12-05 11:34] LABS: BACTERIA,URINE TRACE /HPF; BILIRUBIN,URINE 1+ (NEGATIVE); RBC,URINE RARE /HPF; SQUAMOUS EPITHELIAL CELL,UR RARE /HPF; WBC,URINE RARE /HPF
[2021-12-05 11:37] LABS: BACTERIA,URINE TRACE /HPF; RBC,URINE TNTC /HPF
--- NOTE | 2021-12-05 11:51 | Consultation ---
History of Present Illness History of Present Illness Patient Consulted On(jimmie/time) 12/05/21 11:46 History of Present Illness Pt is a pleasant 66 y/o WM with h/o CAD s/p cabg and PCI-3 years ago, DM, and HTN who was admitted with chest pain. On admission, pt's trop was found to have undetectable. EKG showed old changes. Cardiology consulted and trending troponin along with continue heparin gtt. Cath not an option at this point due to elevated creatinine. Pt admitted with Cr of 3.43 w/o known baseline. Hgb 11-13 range since admission. No Renal u/s yet. Urine outpt monitored in the ICU. dominguez in place Per chart review, did not receive nephrotoxins. Received kayexalate for hyperkalemia on presentation. PCP - [facility] in [place] Of note, pt did the tattoo himself on his right arm at home. Allergies and Home Medications Allergies Coded Allergies: No Known Drug Allergies (Unverified , 12/05/21) Past Xgkqbsh-Dnmpxc-Qomlin Hx Patient Social History Tobacco Use?: Yes Tobacco type used: Cigarettes Smoking Status: Current Everyday Smoker E-Cig or Vaping type used: Marijuana Substance use?: Yes Substance type: Marijuana Alcohol Use?: No Pt feels they are or have been: No Immunizations Up To Date First/Initial COVID19 Vaccinat: date? Second COVID19 Vaccination Jimmie: date? 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 Past Medical History Surgery/Hospitalization HX: triple bypass, cardiac stents x 6, DM, Review of Systems-General Constitutional: see HPI EENTM: see HPI Physical Exam-General Problems Physical Exam Vital Signs Vital Signs - First Documented 12/05/21 12/05/21 00:00 00:35 Temp 36.4 Pulse 87 Resp 22 B/P (MAP) 137/100 (112) Pulse Ox 95 O2 Delivery Room Air O2 Flow Rate 2.00 Capillary Refill : Less Than 3 Seconds General Appearance: no apparent distress HEENT: PERRL/EOMI Respiratory: lungs clear Cardiovascular: regular rate, rhythm, no edema, no JVD, no murmur Gastrointestinal: No distended Neurologic/Psychiatric: alert, normal mood/affect Skin: normal color, warm/dry Assessment/Plan Assessment/Plan Admission Diagnosis/Plan Acute renal failure baseline not known; will need to obtain outpatient labs to establish baseline cr suspect some degree of underlying CKD given anemia on presentation which could anemia of chronic ds Will obtain renal u/s to define anatomy particularly evaluting for evidence of renal atrophy and ruling out urinary retention will also check urine pro/cr, u/a, urine eosinophils and urine sodium admission u/a was negative for blood then hematuria developed after dominguez placement due to dominguez trauma agree with voiding trial and removing dominguez while monitoring post void residual volume by bladder scan Given recent home tattoo being a risk factor for hepatitis, consider hep panel as hepatitis could be complicating his NINA Urine acid is elevates supporting probably volume depletion leading to NINA Agree with holding off on contrast/cath until renal function returns to baseline Educated to avoid nephrotoxins including nsaids No indication for dialysis Anticipate improvement with supportive care Stop ivf if pt develops soa Please arrange for outpatient follow up in my [facility] clinic in 4 weeks with repeat labs; appreciate if SW can fax facesheet with clinic appointment request to my office Hyperkalemia responded to medical management on admission monitor serum bicarb for acidosis and establish euglycemia to avoid hyperkalemia also recommend low k diet Chest pain cardiology following trending trop ACS rule out Met acidosis start po bicarb 1300 bid goal to correct bicarb to >22 Anemia check iron studies, b12 and folate Thank you for allowing me to participate in the care of this very pleasant patient. Clinical Quality Measures AMI/AHF: ASA po Prior to arrival: Yes SUSI MCKEON MD Dec 05, 2021 11:51
[2021-12-05] MEDS ORDERED: CYCL10TA25 PO (13:21)
[2021-12-05] MEDS ORDERED: ASPI-1238 PO (13:21)
[2021-12-05] MEDS ORDERED: METO50TA7 PO (13:21)
[2021-12-05] MEDS ORDERED: PARO30TA3 PO (13:21)
[2021-12-05] MEDS ORDERED: ATOR80TA76 PO (13:21)
[2021-12-05] MEDS ORDERED: CLOP75TA28 PO (13:21)
[2021-12-05] MEDS ORDERED: LISI30TA5 PO (13:21)
[2021-12-05] MEDS ORDERED: METF-397 PO (13:21)
--- NOTE | 2021-12-05 14:40 | Diagnostic Imaging Report ---
PROCEDURE: US Renal Bilateral. TECHNIQUE: Multiple real-time grayscale images were obtained over the kidneys in various projections bilaterally. INDICATION: Acute renal insufficiency. COMPARISON: None FINDINGS: Right kidney measures 11.6 cm in length and left measures 10.3 cm. Anechoic benign-appearing cysts are identified involving the inferior poles of both kidneys. Cyst on the right measures 1 x 1.1 x 1.1 cm and cyst on the left measures 3.6 x 2.4 x 2.4 cm. No suspicious solid masses are seen. There is no evidence of calculus or hydronephrosis. Cortical thickness and cortical medullary differentiation are maintained, bilaterally. There is no ascites. Limited views of the pelvis show indwelling Pena catheter with minimal distention of the urinary bladder. Bladder volume measures 45 mL. IMPRESSION: 1. Benign-appearing bilateral renal cysts. Otherwise, unremarkable renal sonogram. Dictated by: Dictated on workstation # [id number]
[2021-12-05] MEDS ORDERED: ENOXAPARIN INJECTION 30 MG/0.3 ML SYR SQ SCH (15:00)
[2021-12-05] MEDS: SODIUM BICARBONATE 650 MG TABLET PO SCH (20:11)
[2021-12-05] MEDS ORDERED: LORazepam INJ 2 MG/ML (ATIVAN) VIAL ONE (22:27)
[2021-12-05] MEDS ORDERED: LORazepam INJ 2 MG/ML (ATIVAN) VIAL IVP ONE (22:30)
[2021-12-06] MEDS: NS IV 1000 ML 1,000 ML IV SCH ×5 (01:30→20:17)
[2021-12-06 06:35] LABS: BASOPHILS % (AUTO) 1 % (0-10); EOSINOPHILS # (AUTO) 0.6 10^3/uL (0.0-0.3); EOSINOPHILS % (AUTO) 9 % (0-10); HEMATOCRIT 33 % (40-54); HEMOGLOBIN 10.6 g/dL (13.3-17.7); LYMPHOCYTES # (AUTO) 0.9 10^3/uL (1.0-4.0); LYMPHOCYTES % (AUTO) 14 % (12-44); MEAN CORPUSCULAR HEMOGLOBIN 30 pg (25-34); MEAN CORPUSCULAR HGB CONC 33 g/dL (32-36); MEAN CORPUSCULAR VOLUME 91 fL (80-99); MEAN PLATELET VOLUME 11.5 fL (9.0-12.2); MONOCYTES # (AUTO) 0.5 10^3/uL (0.0-1.0); MONOCYTES % (AUTO) 7 % (0-12); NEUTROPHILS # (AUTO) 4.4 10^3/uL (1.8-7.8); NEUTROPHILS % (AUTO) 68 % (42-75); PLATELET COUNT 160 10^3/uL (130-400); WHITE BLOOD COUNT 6.4 10^3/uL (4.3-11.0)
[2021-12-06 06:53] LABS: ALBUMIN 3.2 GM/DL (3.2-4.5); POTASSIUM 4.8 MMOL/L (3.6-5.0)
[2021-12-06 06:54] LABS: CALCIUM 7.6 MG/DL (8.5-10.1)
[2021-12-06 06:55] LABS: TOTAL PROTEIN 5.7 GM/DL (6.4-8.2)
[2021-12-06 06:57] LABS: BILIRUBIN,TOTAL 0.3 MG/DL (0.1-1.0)
[2021-12-06 06:58] LABS: PHOSPHORUS 2.8 MG/DL (2.3-4.7)
[2021-12-06 06:59] LABS: CREATININE SERUM 1.58 MG/DL (0.60-1.30)
[2021-12-06 07:02] LABS: MAGNESIUM 1.5 MG/DL (1.6-2.4)
[2021-12-06] MEDS: POTASSIUM CL 10MEQ/50ML IVPB 50 ML IV SCH (07:27)
[2021-12-06] MEDS: KCL 20 MEQ TAB (K-DUR) PO SCH (07:28)
[2021-12-06] MEDS: MAGNESIUM 1 GM/100 ML IVPB 100 ML IV SCH ×3 (07:28→08:48)
[2021-12-06] MEDS: SODIUM BICARBONATE 650 MG TABLET PO SCH ×2 (08:14→20:18)
[2021-12-06] MEDS: ASPIRIN 81 MG CHEW (CHILDREN'S ASA) PO SCH (08:14)
[2021-12-06] MEDS: PANTOPRAZOLE 40 MG (PROTONIX) TAB PO SCH ×3 (08:14→20:18)
[2021-12-06] MEDS: RT-ALBUTEROL SULF 2.5 MG/3 ML PRE-MIX VIAL INH SCH (08:55)
[2021-12-06] MEDS ORDERED: LORazepam 1 MG (ATIVAN) TAB PO PRN (09:00)
[2021-12-06] MEDS ORDERED: meTOproloL SUCCINATE 50 MG (TOPROL XL) TAB PO SCH (09:00)
--- NOTE | 2021-12-06 09:04 | Cardiology Progress Note ---
Progress Note-Cardiology Events since last exam Date Seen by Provider: Dec 06, 2021 Time Seen by Provider: 08:59 Events since last exam I am following him due to coronary artery disease. He continues to have chest pain on. However, his main complaint is that his right heel and ankle hurt. He denies any injury. He denies dyspnea at rest. He denies palpitations, syncope, or peripheral edema. His other complaint is that he has been tremulous. He denies any alcohol use at home. He denies illicit drug use other than marijuana. Certain portions of this document may have been dictated utilizing voice re cognition technology. Inherent to this technology, typographical and grammatical errors may exist. As much as I am diligent to identify and correct these mistakes, some errors may remain in the document. Vitals Last set of Vitals Signs Vital Signs 12/06/21 12/06/21 12/06/21 08:00 08:06 08:55 Temp 36.6 Pulse 77 Resp 21 B/P (MAP) 135/68 Pulse Ox 96 O2 Delivery OxyMask O2 Flow Rate 2.00 Labs Labs Laboratory Tests 12/06/21 05:33 Exam Vital Signs Vital Signs Date Time Temp Pulse Resp B/P (MAP) Pulse Ox O2 Delivery O2 Flow Rate FiO2 12/06/21 08:55 96 OxyMask 2.00 12/06/21 08:06 36.6 12/06/21 08:00 77 21 135/68 Physical Exam General: Alert. No acute distress. Eye: No xanthelasma. HENT: Normocephalic. Neck: Jugular venous pressure does not appear elevated. Respiratory: Lungs are clear to auscultation. Respirations are non-labored. Breath sounds are equal. Symmetrical chest wall expansion. Cardiovascular: Normal rate. Regular rhythm. No murmur. No gallop. No edema. Brisk PT pulses bilaterally. Gastrointestinal: Soft. Normal bowel sounds. Skin: Warm. Dry. Neurologic: Alert and oriented to person, place, time. Cranial nerves 3-11 grossly intact. Psychiatric: Cooperative. Appropriate mood & affect. Labs Laboratory Tests Test 12/05/21 10:30 12/05/21 11:23 12/05/21 11:25 12/05/21 14:50 Range/Units Urine Color YELLOW Urine Clarity CLEAR Urine pH 5.5 5-9 Urine Specific Patriot >=1.030 1.016-1.022 Urine Protein 1+ H NEGATIVE Urine Glucose (UA) NEGATIVE NEGATIVE Urine Ketones NEGATIVE NEGATIVE Urine Nitrite NEGATIVE NEGATIVE Urine Bilirubin NEGATIVE NEGATIVE Urine Urobilinogen 0.2 < = 1.0 MG/DL Urine Leukocyte Esterase 1+ H NEGATIVE Urine RBC (Auto) 3+ H NEGATIVE Urine RBC TNTC H /HPF Urine WBC 5-10 H /HPF Urine Squamous Epithelial Cells NONE /HPF Urine Crystals NONE /LPF Urine Bacteria TRACE /HPF Urine Casts PRESENT /LPF Urine Hyaline Casts 2-5 H /LPF Urine Mucus NEGATIVE /LPF Urine Culture Indicated YES Urine Creatinine 200 H 30-125 MG/DL Urine Protein/Creatinine Ratio 0.25 Glucometer 92 70-110 MG/DL Activated Partial Thromboplast Time 53 H 24-35 SEC Urine Eosinophils Few H NONE Urine Random Sodium 160 mmol/L Test 12/05/21 22:19 12/06/21 05:33 Range/Units Glucometer 150 H 70-110 MG/DL White Blood Count 6.4 4.3-11.0 10^3/uL Red Blood Count 3.57 L 4.30-5.52 10^6/uL Hemoglobin 10.6 L 13.3-17.7 g/dL Hematocrit 33 L 40-54 % Mean Corpuscular Volume 91 80-99 fL Mean Corpuscular Hemoglobin 30 25-34 pg Mean Corpuscular Hemoglobin Concent 33 32-36 g/dL Red Cell Distribution Width 15.4 H 10.0-14.5 % Platelet Count 160 130-400 10^3/uL Mean Platelet Volume 11.5 9.0-12.2 fL Immature Granulocyte % (Auto) 1 % Neutrophils (%) (Auto) 68 42-75 % Lymphocytes (%) (Auto) 14 12-44 % Monocytes (%) (Auto) 7 0-12 % Eosinophils (%) (Auto) 9 0-10 % Basophils (%) (Auto) 1 0-10 % Neutrophils # (Auto) 4.4 1.8-7.8 10^3/uL Lymphocytes # (Auto) 0.9 L 1.0-4.0 10^3/uL Monocytes # (Auto) 0.5 0.0-1.0 10^3/uL Eosinophils # (Auto) 0.6 H 0.0-0.3 10^3/uL Basophils # (Auto) 0.0 0.0-0.1 10^3/uL Immature Granulocyte # (Auto) 0.0 0.0-0.1 10^3/uL Sodium Level 138 135-145 MMOL/L Potassium Level 4.8 3.6-5.0 MMOL/L Chloride Level 110 H 98-107 MMOL/L Carbon Dioxide Level 20 L 21-32 MMOL/L Anion Gap 8 5-14 MMOL/L Blood Urea Nitrogen 25 H 7-18 MG/DL Creatinine 1.58 H 0.60-1.30 MG/DL Estimat Glomerular Filtration Rate 49 BUN/Creatinine Ratio 16 Glucose Level 161 H 70-105 MG/DL Calcium Level 7.6 L 8.5-10.1 MG/DL Corrected Calcium 8.2 L 8.5-10.1 MG/DL Phosphorus Level 2.8 2.3-4.7 MG/DL Magnesium Level 1.5 L 1.6-2.4 MG/DL Total Bilirubin 0.3 0.1-1.0 MG/DL Aspartate Amino Transf (AST/SGOT) 17 5-34 U/L Alanine Aminotransferase (ALT/SGPT) 14 0-55 U/L Alkaline Phosphatase 87 40-136 U/L Total Protein 5.7 L 6.4-8.2 GM/DL Albumin 3.2 3.2-4.5 GM/DL Diagnosis/Problems Diagnosis/Problems (1) Coronary artery disease with unstable angina pectoris Assessment & Plan: He ruled out for myocardial infarction. He continues to have intermittent chest discomfort although I am not convinced this is cardiac. However, given his known coronary artery disease with previous bypass surgery and multiple coronary stents, at some point he probably needs an ischemic evaluation. I have ordered an echocardiogram for today. He should continue on aspirin and statin medication. I have also ordered the beta-chance he was taking at home. Once his creatinine stabilizes, I will consider cardiac catheterization. The schedule for 12/07 is quite full. I will tentatively plan on cardiac catheterization for 12/08. (2) Acute kidney injury Assessment & Plan: His creatinine level was markedly elevated but has now improved. I will wait to see his carmela before considering cardiac catheterization. Nephrology has seen the patient. There is no indication for renal replacement therapy at this time. (3) Primary hypertension Assessment & Plan: His blood pressure has been trending upwards. I will restart his metoprolol succinate this morning. We will need to hold off on starting LESLEY inhibitor until his renal function improves. (4) Mixed hyperlipidemia Assessment & Plan: Continue atorvastatin 80 mg once daily which she was taking at home. (5) Hyperkalemia Status: Acute Assessment & Plan: This resolved as his renal function has improved. (6) Tremor Assessment & Plan: He denies alcohol or other illegal drug use other than marijuana. I would question whether or not he may have had a baseline essential tremor that was masked by the metoprolol that he was taking. The hospitalist has ordered CIWA protocol in case he is not telling truth about alcohol use. (7) Cigarette smoker Assessment & Plan: He needs to quit smoking. SARINA NOONAN JR, MD Dec 06, 2021 09:04
--- NOTE | 2021-12-06 09:41 | Tele-ICU Progress Note ---
Subjective Date Seen by a Provider: Dec 06, 2021 Time Seen by a Provider: 09:41 Subjective/Events-last exam (Tele-ICU Physician , Progress Note ) Available chart/ vitals / labs / Images reviewed Video assessment done using teleICU camera, rest of exam as per RN Discussed with RN Events overnight : Afebrile hemodynamically stable Respiratory - I/O = Drips: Pressors- no Consultants: Hospital course: 12/05 - Admitted with unstable angina, NINA, and hyperkalemia. A/P CAD, s/p CABG - meds as per cards , planned angio latter this week NINA - US kidney - no hydro - cont to monitor TREMOR - new -Suspected ETOH by bedside MD , as per RN - denies ETOH , ( was placed on CIWA by PCP - follow ( vitamins gven ) - asked to hold off on nebs - time of tremor correlates with nebs Anemia - stable Suspected YANELI vs obesity hypoventilation - needs O2 while sleeping Lines : , (Central Line Necessity Reviewed) Pena: OG: Nutrition: Analgesia: Anxiety/ delirium VTE Prophylaxis: hep sq Stress Ulcer Prophylaxis: ppi Plans in collaboration with bedside consultants and IM MDs. Discussed with RN to reach out if any questions or concerns A total of 31 minutes of critical care time was devoted to this patient today, required to treat and/or prevent further deterioration of critical care condition ( as above ) . Sepsis Event Evaluation Height, Weight, BMI Height: '" Weight: lbs. oz. kg; 33.27 BMI Method: Exam Exam Patient acknowledged, consented, and participated in this virtual visit which was conducted using real time audio/video Vital Signs Date Time Temp Pulse Resp B/P (MAP) Pulse Ox O2 Delivery O2 Flow Rate FiO2 12/06/21 09:00 92 7 103/70 100 OxyMask 2.00 12/06/21 08:55 96 OxyMask 2.00 12/06/21 08:06 36.6 12/06/21 08:00 77 21 135/68 98 OxyMask 2.00 12/06/21 07:16 79 12/06/21 07:00 79 18 139/74 98 OxyMask 2.00 12/06/21 06:00 83 24 157/96 95 OxyMask 2.00 12/06/21 05:00 84 16 110/72 98 OxyMask 2.00 12/06/21 04:00 98 OxyMask 2.00 12/06/21 04:00 92 136/71 98 OxyMask 2.00 12/06/21 04:00 36.7 12/06/21 03:00 86 15 134/66 98 OxyMask 2.00 12/06/21 02:00 85 15 130/74 98 OxyMask 2.00 12/06/21 01:00 104 12/06/21 01:00 104 16 158/88 96 OxyMask 2.00 12/06/21 00:54 104 14 97 OxyMask 2.00 12/06/21 00:00 94 Room Air 12/06/21 00:00 107 119/76 94 Room Air 12/05/21 23:45 37.2 12/05/21 23:00 110 18 108/55 91 Room Air 12/05/21 22:00 90 18 109/63 93 Room Air 12/05/21 21:31 89 39 100 Room Air 12/05/21 21:25 97 Nasal Cannula 2.00 12/05/21 21:00 76 19 99/67 94 Nasal Cannula 2.00 12/05/21 20:00 72 15 104/59 94 Nasal Cannula 2.00 12/05/21 20:00 36.6 12/05/21 20:00 98 Room Air 12/05/21 19:00 86 12/05/21 19:00 86 26 107/63 96 Nasal Cannula 2.00 12/05/21 18:00 79 13 106/87 96 Room Air 12/05/21 17:00 80 13 120/62 95 Room Air 12/05/21 16:00 Room Air 12/05/21 16:00 78 14 99/65 94 Room Air 12/05/21 15:07 98 Room Air 2.00 12/05/21 15:00 71 18 94/68 95 Room Air 12/05/21 14:00 67 33 108/65 96 Room Air 12/05/21 13:00 61 14 111/71 97 Room Air 12/05/21 12:06 62 12/05/21 12:00 61 12 108/57 96 Room Air 12/05/21 12:00 Room Air 12/05/21 11:00 60 13 100 Room Air 12/05/21 10:00 61 12 117/72 100 Room Air I & O 12/06/21 07:00 Intake Total 5280 ml Output Total 2900 ml Balance 2380 ml Height & Weight Height: '" Weight: lbs. oz. kg; 33.27 BMI Method: General Appearance: No Apparent Distress, Chronically ill HEENT: PERRL/EOMI, Normal ENT Inspection, Pharynx Normal, Moist Mucous Membranes Neck: Full Range of Motion, Normal Inspection, Non Tender Respiratory: Chest Non Tender, Lungs Clear, Normal Breath Sounds, No Accessory Muscle Use, No Respiratory Distress Cardiovascular: Regular Rate, Rhythm, No Edema, No Gallop, No JVD, No Murmur, Normal Peripheral Pulses Capillary Refill: Less Than 3 Seconds Gastrointestinal: No distended Extremity: Normal Capillary Refill, Normal Inspection, Normal Range of Motion, Non Tender, No Calf Tenderness, No Pedal Edema Neurologic/Psychiatric: Alert, Oriented x3, No Motor/Sensory Deficits, Normal Mood/Affect Skin: Normal Color, Warm/Dry Lymphatic: No Adenopathy Results Lab Laboratory Tests 12/05/21 00:15 12/05/21 02:20 12/05/21 05:35 12/06/21 05:33 Assessment/Plan Assessment/Plan 1 SULLY MALDONADO MD Dec 06, 2021 09:41
--- NOTE | 2021-12-06 10:09 | Progress Note - Hospitalist ---
TRANG WILLARD 12/06/21 1009: Subjective HPI/CC On Admission Date Seen by Provider: Dec 06, 2021 Time Seen by Provider: 09:30 CC: Chest pain with acute kidney injury HPI: This is a 66 yr old male, previous bypass due to CAD. He presented with unstable angina after what was thought to be a STEMI. It ended up being hyperkalemia peaked T waves. Potassium was 5.7, that was treated and improved to 4.6 with IV fluids. Holding beta chance due to bradycardia. Creatinine was 3.43 prompting nephrology consult. Updated pt on plan Subjective/Events-last exam Patient reports feeling full body aches and shaking all night long. He received a dose of Lorazepam and these symptoms resolved. His chest pain started again last night. Objective Exam Vital Signs Vital Signs Date Time Temp Pulse Resp B/P (MAP) Pulse Ox O2 Delivery O2 Flow Rate FiO2 12/06/21 09:00 92 7 103/70 100 OxyMask 2.00 12/06/21 08:06 36.6 Capillary Refill : Less Than 3 Seconds General Appearance: Mild Distress, Other (shaking in bed) HEENT: PERRL/EOMI, Moist Mucous Membranes Neck: Non Tender, Supple Respiratory: Chest Non Tender, Lungs Clear, Normal Breath Sounds Cardiovascular: Regular Rate, Rhythm, No JVD Gastrointestinal: Normal Bowel Sounds, Non Tender, Soft Back: No CVA Tenderness Extremity: Normal Capillary Refill, No Calf Tenderness Neurologic/Psychiatric: Alert, Oriented x3 Skin: Normal Color, Warm/Dry Results/Procedures Lab Laboratory Tests 12/06/21 05:33 Patient resulted labs reviewed. Assessment/Plan Assessment and Plan Assess & Plan/Chief Complaint 1) Unstable Angina * Cards following, appreciate recs * Troponin negative * EKG no sign of STEMI * Weight based heparin infusion protocol discontinued * Holding beta chance in setting of low blood pressure, consider restarting today * Start statin * ASA 81 2) NINA * Nephrology consulted, appreciate recs * Cr significantly improved to 1.58 today * IVF and continue to monitor * Pena removed, voiding trial * Hold lisinopril 3) T2DM * SSI 4) Anemia * Iron studies, folate, and B12 ordered * Hgb 10.6 today 5) Possible Withdrawal * AWAS protocol Dispo: Continue care in ICU. Clinical Quality Measures AMI/AHF: ASA po Prior to arrival: Yes STEFANY MUÑOZ DO 12/07/21 0603: Objective Exam General Appearance: Mild Distress Respiratory: Lungs Clear, Normal Breath Sounds Cardiovascular: Regular Rate, Rhythm Neurologic/Psychiatric: Alert, Oriented x3 Assessment/Plan Assessment and Plan Assess & Plan/Chief Complaint Unusual episodes withdrawal versus seizure? Supervisory-Addendum Brief Verification & Attestation Participated in pt care: history, MDM, physical Personally performed: exam, history, MDM, supervision of care Care discussed with: Medical Student Procedures: n/a Results interpretation: Verified all documentation Verification and Attestation of Medical Student E/M Service A medical student performed and documented this service in my presence. I reviewed and verified all information documented by the medical student and made modifications to such information, when appropriate. I personally performed the physical exam and medical decision making. Stefany Muñoz, Dec 07, 2021,06:02 TRANG WILLARD Dec 06, 2021 10:09 STEFANY MUÑOZ DO Dec 07, 2021 06:03
--- NOTE | 2021-12-06 11:33 | Progress Note ---
Progress Note Assessment/Plan Events since last exam Pt having intermittwbt shaking and given prn benzo's. denies daily etoh at home. went fir CT. making urine. cr improving Assessment/Plan Acute renal failure- improving baseline not known; will need to obtain outpatient labs to establish baseline cr suspect some degree of underlying CKD given anemia on presentation which could anemia of chronic ds reviewed renal u/s admission u/a was negative for blood then hematuria developed after dominguez placement due to dominguez trauma agree with voiding trial and removing dominguez while monitoring post void residual volume by bladder scan Given recent home tattoo being a risk factor for hepatitis, consider hep panel as hepatitis could be complicating his NINA Urine acid is elevates supporting probably volume depletion leading to NINA Agree with holding off on contrast/cath until renal function returns to baseline Educated to avoid nephrotoxins including nsaids No indication for dialysis Anticipate improvement with supportive care encourage po intake instead of IVF Please arrange for outpatient follow up in my [place] clinic in 4 weeks with repeat labs; appreciate if SW can fax facesheet with clinic appointment request to my office Hyperkalemia-improved responded to medical management on admission monitor serum bicarb for acidosis and establish euglycemia to avoid hyperkalemia also recommend low k diet Chest pain cardiology following trending trop ACS rule out Met acidosis start po bicarb 1300 bid goal to correct bicarb to >22 Anemia check iron studies, b12 and folate Thank you for allowing me to participate in the care of this very pleasant patient. Vitals Last set of Vitals Signs Vital Signs Date Time Temp Pulse Resp B/P (MAP) Pulse Ox O2 Delivery O2 Flow Rate FiO2 12/06/21 10:00 93 23 130/82 96 OxyMask 2.00 12/06/21 08:06 36.6 I&O I&O Intake and Output 12/06/21 00:00 Intake Total 7180 ml Output Total 1700 ml Balance 5480 ml Intake Oral 1180 ml IV Total 6000 ml Output Urine Total 1700 ml Stool Total 0 ml # Bowel Movements 1 Daily Weight Change No Labs Laboratory Tests 12/05/21 14:50: Urine Eosinophils FewH, Urine Random Sodium 160 12/05/21 22:19: Glucometer 150H 12/06/21 05:33: White Blood Count 6.4, Red Blood Count 3.57L, Hemoglobin 10.6L, Hematocrit 33L, Mean Corpuscular Volume 91, Mean Corpuscular Hemoglobin 30, Mean Corpuscular Hemoglobin Concent 33, Red Cell Distribution Width 15.4H, Platelet Count 160, Mean Platelet Volume 11.5, Immature Granulocyte % (Auto) 1, Neutrophils (%) (Auto) 68, Lymphocytes (%) (Auto) 14, Monocytes (%) (Auto) 7, Eosinophils (%) (Auto) 9, Basophils (%) (Auto) 1, Neutrophils # (Auto) 4.4, Lymphocytes # (Auto) 0.9L, Monocytes # (Auto) 0.5, Eosinophils # (Auto) 0.6H, Basophils # (Auto) 0.0, Immature Granulocyte # (Auto) 0.0, Sodium Level 138, Potassium Level 4.8, Chloride Level 110H, Carbon Dioxide Level 20L, Anion Gap 8, Blood Urea Nitrogen 25H, Creatinine 1.58H, Estimat Glomerular Filtration Rate 49, BUN/Creatinine Ratio 16, Glucose Level 161H, Calcium Level 7.6L, Corrected Calcium 8.2L, Phosphorus Level 2.8, Magnesium Level 1.5L, Total Bilirubin 0.3, Aspartate Amino Transf (AST/SGOT) 17, Alanine Aminotransferase (ALT/SGPT) 14, Alkaline Phosphatase 87, Total Protein 5.7L, Albumin 3.2 Microbiology 12/05/21 Urine Culture - Final, Complete NO GROWTH 12/05/21 MRSA Screen - Final, Complete MRSA not isolated Clinical Quality Measures AMI/AHF: ASA po Prior to arrival: Yes SUSI MCKEON MD Dec 06, 2021 11:33
--- NOTE | 2021-12-06 11:50 | Diagnostic Imaging Report ---
EXAMINATION: CT head without contrast. TECHNIQUE: Multiple contiguous axial images were obtained through the brain without the use of intravenous contrast. All CT scans use one or more of the following dose optimizing techniques: automated exposure control, MA and/or KvP adjustment based on patient size and exam type or iterative reconstruction. HISTORY: Seizure-like activity. COMPARISON: None available. FINDINGS: No large acute territorial ischemia, mass, or hemorrhage. No midline shift or mass effect. Scattered areas of decreased attenuation are seen in the periventricular and subcortical white matter. The ventricles, cortical sulci, and basilar cisterns are patent and unremarkable. Bilateral lens implants are noted. Retained secretions are seen throughout the paranasal sinuses, greatest in the ethmoid sinuses and left maxillary sinus. Mastoid air cells are clear. No soft tissue abnormality is seen. No osseous lesions or fractures are seen. IMPRESSION: 1. No large acute territorial ischemia, mass, or hemorrhage. 2. Scattered chronic microvascular disease. 3. Paranasal sinus disease. Dictated by: Dictated on workstation # [id number]
[2021-12-06] MEDS ORDERED: THIAMINE INJECTION 100 MG, FOLIC ACID INJECTION 1 MG, MAGNESIUM SULFATE 2 GM, VITAMIN M... IV SCH ×5 (12:00)
[2021-12-06] MEDS ORDERED: LORazepam INJ 2 MG/ML (ATIVAN) VIAL ONE (13:30)
[2021-12-06] MEDS ORDERED: LORazepam INJ 2 MG/ML (ATIVAN) VIAL IVP PRN (13:30)
[2021-12-06] MEDS: MAGNESIUM OXIDE (MAG-OX)400 MG TAB PO SCH (20:18)
[2021-12-07] MEDS: RT-ALBUTEROL SULF 2.5 MG/3 ML PRE-MIX VIAL INH SCH (00:27)
[2021-12-07] MEDS: ACETAMINOPHEN 325 MG TABLET PO PRN ×2 (00:36→01:30)
[2021-12-07] MEDS: NS IV 1000 ML 1,000 ML IV SCH ×4 (01:02→15:59)
[2021-12-07] MEDS ORDERED: IBUPROFEN 600 MG (MOTRIN) TAB PO ONE (03:15)
[2021-12-07 05:46] LABS: BASOPHILS % (AUTO) 1 % (0-10); EOSINOPHILS % (AUTO) 15 % (0-10); HEMATOCRIT 32 % (40-54); HEMOGLOBIN 10.6 g/dL (13.3-17.7); LYMPHOCYTES # (AUTO) 1.2 10^3/uL (1.0-4.0); LYMPHOCYTES % (AUTO) 18 % (12-44); MEAN CORPUSCULAR HEMOGLOBIN 29 pg (25-34); MEAN CORPUSCULAR HGB CONC 33 g/dL (32-36); MEAN CORPUSCULAR VOLUME 90 fL (80-99); MEAN PLATELET VOLUME 11.8 fL (9.0-12.2); MONOCYTES # (AUTO) 0.5 10^3/uL (0.0-1.0); MONOCYTES % (AUTO) 8 % (0-12); NEUTROPHILS # (AUTO) 3.7 10^3/uL (1.8-7.8); NEUTROPHILS % (AUTO) 58 % (42-75); PLATELET COUNT 160 10^3/uL (130-400); WHITE BLOOD COUNT 6.4 10^3/uL (4.3-11.0)
[2021-12-07 05:56] LABS: ALBUMIN 3.4 GM/DL (3.2-4.5); POTASSIUM 4.6 MMOL/L (3.6-5.0)
[2021-12-07 05:57] LABS: CALCIUM 7.7 MG/DL (8.5-10.1)
[2021-12-07 05:58] LABS: TOTAL PROTEIN 5.9 GM/DL (6.4-8.2)
[2021-12-07 06:00] LABS: BILIRUBIN,TOTAL 0.5 MG/DL (0.1-1.0)
[2021-12-07 06:01] LABS: PHOSPHORUS 1.5 MG/DL (2.3-4.7)
[2021-12-07 06:02] LABS: CREATININE SERUM 1.2 MG/DL (0.60-1.30)
[2021-12-07 06:05] LABS: MAGNESIUM 1.6 MG/DL (1.6-2.4)
[2021-12-07] MEDS: POTASSIUM CL 10MEQ/50ML IVPB 50 ML IV SCH (06:13)
[2021-12-07] MEDS: KCL 20 MEQ TAB (K-DUR) PO SCH (06:14)
[2021-12-07] MEDS: MAGNESIUM 1 GM/100 ML IVPB 100 ML IV SCH (06:14)
--- NOTE | 2021-12-07 09:49 | Cardiology Progress Note ---
Progress Note-Cardiology Events since last exam Date Seen by Provider: Dec 07, 2021 Time Seen by Provider: 09:47 Events since last exam I am following him due to coronary artery disease with unstable angina. His chest discomfort has resolved. He still feels slightly short of breath from time to time. He denies palpitations, syncope, or ankle edema. His right ankle and heel still hurt. Certain portions of this document may have been dictated utilizing voice recognition technology. Inherent to this technology, typographical and grammatical errors may exist. As much as I am diligent to identify and correct these mistakes, some errors may remain in the document. Vitals Last set of Vitals Signs Vital Signs 12/07/21 12/07/21 14:00 16:07 Temp 36.8 Pulse 80 Resp 20 B/P (MAP) 154/84 (107) Pulse Ox 96 O2 Delivery Room Air O2 Flow Rate 2.00 Labs Labs Laboratory Tests 12/07/21 04:26 Exam Vital Signs Vital Signs Date Time Temp Pulse Resp B/P (MAP) Pulse Ox O2 Delivery O2 Flow Rate FiO2 12/07/21 16:07 36.8 80 20 154/84 (107) 96 Room Air 12/07/21 14:00 2.00 Physical Exam General: Alert. No acute distress. Eye: No xanthelasma. HENT: Normocephalic. Neck: Jugular venous pressure does not appear elevated. Respiratory: Lungs have scattered wheezes. Respirations are non-labored. Breath sounds are equal. Symmetrical chest wall expansion. Cardiovascular: Normal rate. Regular rhythm. No murmur. No gallop. No edema. Gastrointestinal: Soft. Normal bowel sounds. Skin: Warm. Dry. Neurologic: Alert and oriented to person, place, time. Cranial nerves 3-11 grossly intact. Psychiatric: Cooperative. Appropriate mood & affect. Labs Laboratory Tests Test 12/06/21 20:34 12/07/21 04:26 Range/Units Glucometer 117 H 70-110 MG/DL White Blood Count 6.4 4.3-11.0 10^3/uL Red Blood Count 3.60 L 4.30-5.52 10^6/uL Hemoglobin 10.6 L 13.3-17.7 g/dL Hematocrit 32 L 40-54 % Mean Corpuscular Volume 90 80-99 fL Mean Corpuscular Hemoglobin 29 25-34 pg Mean Corpuscular Hemoglobin Concent 33 32-36 g/dL Red Cell Distribution Width 15.5 H 10.0-14.5 % Platelet Count 160 130-400 10^3/uL Mean Platelet Volume 11.8 9.0-12.2 fL Immature Granulocyte % (Auto) 0 % Neutrophils (%) (Auto) 58 42-75 % Lymphocytes (%) (Auto) 18 12-44 % Monocytes (%) (Auto) 8 0-12 % Eosinophils (%) (Auto) 15 H 0-10 % Basophils (%) (Auto) 1 0-10 % Neutrophils # (Auto) 3.7 1.8-7.8 10^3/uL Lymphocytes # (Auto) 1.2 1.0-4.0 10^3/uL Monocytes # (Auto) 0.5 0.0-1.0 10^3/uL Eosinophils # (Auto) 1.0 H 0.0-0.3 10^3/uL Basophils # (Auto) 0.0 0.0-0.1 10^3/uL Immature Granulocyte # (Auto) 0.0 0.0-0.1 10^3/uL Sodium Level 138 135-145 MMOL/L Potassium Level 4.6 3.6-5.0 MMOL/L Chloride Level 109 H 98-107 MMOL/L Carbon Dioxide Level 19 L 21-32 MMOL/L Anion Gap 10 5-14 MMOL/L Blood Urea Nitrogen 15 7-18 MG/DL Creatinine 1.20 0.60-1.30 MG/DL Estimat Glomerular Filtration Rate 68 BUN/Creatinine Ratio 13 Glucose Level 101 70-105 MG/DL Calcium Level 7.7 L 8.5-10.1 MG/DL Corrected Calcium 8.2 L 8.5-10.1 MG/DL Phosphorus Level 1.5 L 2.3-4.7 MG/DL Magnesium Level 1.6 1.6-2.4 MG/DL Total Bilirubin 0.5 0.1-1.0 MG/DL Aspartate Amino Transf (AST/SGOT) 18 5-34 U/L Alanine Aminotransferase (ALT/SGPT) 15 0-55 U/L Alkaline Phosphatase 93 40-136 U/L Total Protein 5.9 L 6.4-8.2 GM/DL Albumin 3.4 3.2-4.5 GM/DL Diagnosis/Problems Diagnosis/Problems (1) Coronary artery disease with unstable angina pectoris Assessment & Plan: He ruled out for myocardial infarction. His chest discomfort now seems to have resolved. However, given his known coronary artery disease with previous bypass surgery and multiple coronary stents, I recommend further evaluation with a cardiac catheterization which we have planned for 12/08. We will continue guideline directed medical therapy with aspirin, beta- chance and statin medication. His creatinine has been improving. (2) Acute kidney injury Assessment & Plan: His creatinine level was markedly elevated at the time of admission but has now improved. Nephrology has seen the patient. There is no indication for renal replacement therapy at this time. (3) Primary hypertension Assessment & Plan: I restarted his metoprolol succinate. We will need to hold off on starting LESLEY inhibitor given the acute kidney injury at the time of admission. (4) Mixed hyperlipidemia Assessment & Plan: Continue atorvastatin 80 mg once daily which she was taking at home. (5) Hyperkalemia Status: Acute Assessment & Plan: This resolved as his renal function improved. (6) Tremor Assessment & Plan: He denies alcohol or other illegal drug use other than marijuana. I would question whether or not he may have had a baseline essential tremor that was masked by the metoprolol that he was taking. The hospitalist has ordered CIWA protocol in case he is not telling truth about alcohol use. (7) Cigarette smoker Assessment & Plan: He needs to quit smoking. SARINA NOONAN JR, MD Dec 07, 2021 09:49
[2021-12-07] MEDS: MULTIVIT W/MINERALS TAB (THERAGRAN M) PO SCH (10:54)
[2021-12-07] MEDS: PANTOPRAZOLE 40 MG (PROTONIX) TAB PO SCH ×2 (10:54→20:29)
[2021-12-07] MEDS: MAGNESIUM OXIDE (MAG-OX)400 MG TAB PO SCH ×2 (10:55→20:29)
[2021-12-07] MEDS: FOLIC ACID 1 MG TAB PO SCH (10:55)
[2021-12-07] MEDS: ASPIRIN 81 MG CHEW (CHILDREN'S ASA) PO SCH (10:55)
[2021-12-07] MEDS: SODIUM BICARBONATE 650 MG TABLET PO SCH ×2 (10:55→20:29)
[2021-12-07] MEDS: meTOprolol SUCCINATE 100 MG (TOPROL XL) TAB PO SCH (11:17)
[2021-12-07] MEDS: ENOXAPARIN 40 MG/0.4 ML (LOVENOX) SYR SC SCH (11:17)
[2021-12-07] MEDS: THIAMINE 100 MG (VITAMIN B-1) TAB PO SCH (11:18)
--- NOTE | 2021-12-07 11:47 | Progress Note - Hospitalist ---
TRANG WILLARD 12/07/21 1147: Subjective HPI/CC On Admission Date Seen by Provider: Dec 07, 2021 Time Seen by Provider: 11:00 CC: Chest pain with acute kidney injury HPI: This is a 66 yr old male, previous bypass due to CAD. He presented with unstable angina after what was thought to be a STEMI. It ended up being hyperkalemia peaked T waves. Potassium was 5.7, that was treated and improved to 4.6 with IV fluids. Holding beta chance due to bradycardia. Creatinine was 3.43 prompting nephrology consult. Updated pt on plan Subjective/Events-last exam Patient reports no acute events overnight. He feels that his body aches and tremors have improved significantly today. His chest pain has improved since arrival but is still a 5/10. Review of Systems General: No Chills, No Night Sweats, No Fatigue HEENT: No Head Aches Pulmonary: No Dyspnea, No Cough Cardiovascular: Chest Pain; No: Palpitations Gastrointestinal: No: Nausea, Vomiting, Abdominal Pain Genitourinary: No Dysuria, No Frequency Neurological: No: Confusion Objective Exam Vital Signs Vital Signs Date Time Temp Pulse Resp B/P (MAP) Pulse Ox O2 Delivery O2 Flow Rate FiO2 12/07/21 13:00 79 13 Nasal Cannula 2.00 12/07/21 12:00 36.4 12/07/21 12:00 96 Capillary Refill : Less Than 3 Seconds General Appearance: No Apparent Distress HEENT: PERRL/EOMI, Moist Mucous Membranes Neck: Full Range of Motion, Supple Respiratory: Chest Non Tender, Lungs Clear, No Accessory Muscle Use Cardiovascular: Regular Rate, Rhythm, No JVD Gastrointestinal: Normal Bowel Sounds, Non Tender, Soft Extremity: Normal Capillary Refill, No Calf Tenderness Neurologic/Psychiatric: Alert, Oriented x3 Skin: Normal Color, Warm/Dry Results/Procedures Lab Laboratory Tests 12/07/21 04:26 Patient resulted labs reviewed. Assessment/Plan Assessment and Plan Assess & Plan/Chief Complaint 1) Unstable Angina * Cards following, appreciate recs * Troponin negative * EKG no sign of STEMI * Weight based heparin infusion protocol being held * Restart beta chance * Start statin * ASA 81 * Cardiology considering cath tomorrow (12/08) 2) NINA (resolved) * Nephrology consulted, appreciate recs * Cr significantly improved to 1.2 today * IVF and continue to monitor * Pena removed, voiding trial * Hold lisinopril 3) T2DM * SSI 4) Anemia * Iron studies, folate, and B12 WNL * Hgb 10.6 today 5) Tremors * AWAS protocol * Symptoms improving Dispo: Transfer to fourth floor on Tele for further management and PT/OT. Clinical Quality Measures AMI/AHF: ASA po Prior to arrival: Yes STEFANY MUÑOZ DO 12/08/21 0536: Subjective Subjective/Events-last exam Improved status Hematuria improved No issue with voiding IVF decreased to 100cc Review of Systems Cardiovascular: Chest Pain Objective Exam General Appearance: No Apparent Distress, WD/WN, Chronically ill Respiratory: Lungs Clear Cardiovascular: Regular Rate, Rhythm Assessment/Plan Assessment and Plan Assess & Plan/Chief Complaint Cath tomorrow Supervisory-Addendum Brief Verification & Attestation Participated in pt care: history, MDM, physical Personally performed: exam, history, MDM, supervision of care Care discussed with: Medical Student Procedures: n/a Results interpretation: Verified all documentation Verification and Attestation of Medical Student E/M Service A medical student performed and documented this service in my presence. I reviewed and verified all information documented by the medical student and made modifications to such information, when appropriate. I personally performed the physical exam and medical decision making. Stefany Muñoz, Dec 08, 2021,05:36 TRANG WILLARD Dec 07, 2021 11:47 STEFANY MUÑOZ DO Dec 08, 2021 05:36
--- NOTE | 2021-12-07 11:54 | Tele-ICU Progress Note ---
Subjective Date Seen by a Provider: Dec 07, 2021 Time Seen by a Provider: 11:53 Subjective/Events-last exam (Tele-ICU Physician , Progress Note ) Available chart/ vitals / labs / Images reviewed Video assessment done using teleICU camera, rest of exam as per RN Discussed with RN Events overnight : Afebrile hemodynamically stable Respiratory - I/O = Drips: Pressors- no Consultants: Hospital course: 12/05 - Admitted with unstable angina, NINA, and hyperkalemia. A/P CAD, s/p CABG - meds as per cards , planned angio latter this week NINA - US kidney - no hydro - cont to monitor TREMOR - new -Suspected ETOH by bedside MD , as per RN - denies ETOH , ( was placed on CIWA by PCP - follow ( vitamins gven ) - asked to hold off on nebs - time of tremor correlates with nebs Anemia - stable Suspected YANELI vs obesity hypoventilation - needs O2 while sleeping Lines : , (Central Line Necessity Reviewed) Pena: OG: Nutrition: Analgesia: Anxiety/ delirium VTE Prophylaxis: hep sq Stress Ulcer Prophylaxis: ppi Plans in collaboration with bedside consultants and IM MDs. Discussed with RN to reach out if any questions or concerns A total of 31 minutes of critical care time was devoted to this patient today, required to treat and/or prevent further deterioration of critical care condition ( as above ) . Sepsis Event Evaluation Height, Weight, BMI Height: '" Weight: lbs. oz. kg; 33.27 BMI Method: Exam Exam Patient acknowledged, consented, and participated in this virtual visit which was conducted using real time audio/video Vital Signs Date Time Temp Pulse Resp B/P (MAP) Pulse Ox O2 Delivery O2 Flow Rate FiO2 12/07/21 08:00 80 8 174/89 96 Nasal Cannula 2.00 12/07/21 07:05 79 12/07/21 07:00 86 21 157/88 94 Room Air 12/07/21 06:00 79 13 179/92 89 Room Air 12/07/21 05:00 88 123/70 94 Room Air 12/07/21 04:00 36.6 12/07/21 04:00 98 Room Air 12/07/21 04:00 89 21 141/76 93 Room Air 12/07/21 03:00 102 17 136/81 92 Room Air 12/07/21 02:00 91 13 171/91 92 Room Air 12/07/21 01:00 86 23 109/54 94 Room Air 12/07/21 01:00 86 12/07/21 00:00 87 22 125/70 97 Room Air 12/06/21 23:59 98 Room Air 12/06/21 23:48 37.2 12/06/21 23:00 88 15 109/65 96 Room Air 12/06/21 22:00 86 27 128/70 95 Room Air 12/06/21 21:00 84 21 147/93 94 Room Air 12/06/21 20:49 Room Air 12/06/21 20:00 98 OxyMask 2.00 12/06/21 20:00 75 18 146/91 100 OxyMask 2.00 12/06/21 19:49 36.8 12/06/21 19:00 79 12/06/21 19:00 79 23 150/88 100 OxyMask 2.00 12/06/21 18:00 86 10 98 OxyMask 2.00 12/06/21 17:00 85 19 97 OxyMask 2.00 12/06/21 16:00 98 OxyMask 2.00 12/06/21 16:00 77 10 140/78 97 OxyMask 2.00 12/06/21 16:00 36.7 12/06/21 15:00 79 9 140/78 97 OxyMask 2.00 12/06/21 14:00 91 11 138/80 100 OxyMask 2.00 12/06/21 13:00 99 23 119/93 99 OxyMask 2.00 12/06/21 12:41 96 12/06/21 12:00 36.9 12/06/21 12:00 98 OxyMask 2.00 12/06/21 12:00 101 13 127/74 99 OxyMask 2.00 I & O 12/07/21 07:00 Intake Total 2786 ml Output Total 2300 ml Balance 486 ml Height & Weight Height: '" Weight: lbs. oz. kg; 33.27 BMI Method: General Appearance: No Apparent Distress HEENT: PERRL/EOMI, Moist Mucous Membranes Neck: Full Range of Motion, Supple Respiratory: Chest Non Tender, Lungs Clear, No Accessory Muscle Use Cardiovascular: Regular Rate, Rhythm, No JVD Capillary Refill: Less Than 3 Seconds Gastrointestinal: No distended Extremity: Normal Capillary Refill, No Calf Tenderness Neurologic/Psychiatric: Alert, Oriented x3 Skin: Normal Color, Warm/Dry Lymphatic: No Adenopathy Results Lab Laboratory Tests 12/06/21 05:33 12/07/21 04:26 Assessment/Plan Assessment/Plan 1 SULLY MALDONADO MD Dec 07, 2021 11:54
[2021-12-07 16:07] VITALS: BP 154/84
[2021-12-07 19:47] VITALS: BP 167/93
[2021-12-07 23:21] VITALS: BP 160/74
[2021-12-08] MEDS: NS IV 1000 ML 1,000 ML IV SCH ×4 (02:00→21:37)
[2021-12-08 03:55] VITALS: BP 134/75
[2021-12-08] MEDS: MULTIVIT W/MINERALS TAB (THERAGRAN M) PO SCH (04:04)
[2021-12-08] MEDS: THIAMINE 100 MG (VITAMIN B-1) TAB PO SCH (04:04)
[2021-12-08 06:06] LABS: BASOPHILS % (AUTO) 1 % (0-10); EOSINOPHILS # (AUTO) 0.9 10^3/uL (0.0-0.3); EOSINOPHILS % (AUTO) 12 % (0-10); HEMATOCRIT 33 % (40-54); HEMOGLOBIN 10.7 g/dL (13.3-17.7); LYMPHOCYTES # (AUTO) 1.2 10^3/uL (1.0-4.0); LYMPHOCYTES % (AUTO) 17 % (12-44); MEAN CORPUSCULAR HEMOGLOBIN 29 pg (25-34); MEAN CORPUSCULAR HGB CONC 33 g/dL (32-36); MEAN CORPUSCULAR VOLUME 89 fL (80-99); MEAN PLATELET VOLUME 11.5 fL (9.0-12.2); MONOCYTES # (AUTO) 0.7 10^3/uL (0.0-1.0); MONOCYTES % (AUTO) 10 % (0-12); NEUTROPHILS # (AUTO) 4.3 10^3/uL (1.8-7.8); NEUTROPHILS % (AUTO) 59 % (42-75); PLATELET COUNT 155 10^3/uL (130-400); WHITE BLOOD COUNT 7.2 10^3/uL (4.3-11.0)
[2021-12-08 06:13] LABS: ALBUMIN 3.6 GM/DL (3.2-4.5); POTASSIUM 4.5 MMOL/L (3.6-5.0)
[2021-12-08 06:15] LABS: CALCIUM 7.8 MG/DL (8.5-10.1)
[2021-12-08 06:16] LABS: TOTAL PROTEIN 6.2 GM/DL (6.4-8.2)
[2021-12-08 06:18] LABS: BILIRUBIN,TOTAL 0.6 MG/DL (0.1-1.0)
[2021-12-08 06:20] LABS: CREATININE SERUM 0.98 MG/DL (0.60-1.30)
[2021-12-08 06:23] LABS: MAGNESIUM 1.3 MG/DL (1.6-2.4)
[2021-12-08 06:43] LABS: BASOPHILS % (MANUAL) 1 %; EOSINOPHILS % (MANUAL) 9 %; LYMPHOCYTES % (MANUAL) 23 %; MONOCYTES % (MANUAL) 11 %; NEUTROPHILS % (MANUAL) 56 %; RBC MORPH NORMAL
[2021-12-08] MEDS ORDERED: LIDOCAINE 1% INJ 20 ML VIAL ONE (06:53)
[2021-12-08] MEDS ORDERED: HEParin (CATH LAB) 2,000 ML IV ONE (06:53)
[2021-12-08 07:27] VITALS: BP 147/75
[2021-12-08] MEDS: PANTOPRAZOLE 40 MG (PROTONIX) TAB PO SCH ×2 (08:33→20:11)
[2021-12-08] MEDS: SODIUM BICARBONATE 650 MG TABLET PO SCH ×2 (08:33→20:11)
[2021-12-08] MEDS: MAGNESIUM OXIDE (MAG-OX)400 MG TAB PO SCH ×2 (08:33→20:11)
[2021-12-08] MEDS: ENOXAPARIN 40 MG/0.4 ML (LOVENOX) SYR SC SCH (08:33)
[2021-12-08] MEDS: FOLIC ACID 1 MG TAB PO SCH (08:33)
[2021-12-08] MEDS: ASPIRIN 81 MG CHEW (CHILDREN'S ASA) PO SCH (08:41)
[2021-12-08] MEDS: meTOprolol SUCCINATE 100 MG (TOPROL XL) TAB PO SCH (08:41)
[2021-12-08] MEDS ORDERED: MIDAZOLAM 5 MG/5 ML (VERSED) VIAL ONE (09:36)
[2021-12-08] MEDS ORDERED: fentaNYL INJ 100 MCG/2 ML AMP ONE (09:36)
[2021-12-08] MEDS ORDERED: NS IV 1000 ML 1,000 ML IV ONE (10:00)
--- NOTE | 2021-12-08 10:20 | Pre-Op Note & Conscious Sedat ---
Pre-Operative Progress Note H&P Reviewed The H&P was reviewed, patient examined and no changes noted. Date H&P Reviewed: Dec 08, 2021 Time H&P Reviewed: 10:16 Pre-Op Diagnosis: Coronary artery disease with unstable angina. Given his current clinical status, he is considered vulnerable. He has no history of heart failure. Conscious Sedation Pre-Proced ASA Score 2 For ASA 3 and 4: Consider anesthesia and medical clearance. Also, for patients with a history of failed moderate sedation consider anesthesia. Airway Lungs Heart ASA score ASA 1: a normal healthy patient ASA 2: a patient with a mild systemic disease (mid diabetes, controlled hypertension, obesity ASA 3: a patient with a severe systemic disease that limits activity (angina, COPD, prior Myocardial infarction) ASA 4: a patient with an incapacitating disease that is a constant threat to life (CHF, renal failure) ASA 5: a moribund patient not expected to survive 24 hrs. (ruptured aneurysm) ASA 6: a declared brain- patient whose organs are being harvested. For emergent operations, add the letter E after the classification Mallampati Classification Grade 2 Sedation Plan Analgesia, Amnesia, Plan communicated to team members, Discussed options with patient/fam, Discussed risks with patient/fam The patient is an appropriate candidate to undergo the planned procedure, sedation, and anesthesia. The patient immediately re-assessed prior to indication. SARINA NOONAN JR, MD Dec 08, 2021 10:20
--- NOTE | 2021-12-08 11:14 | Cardiac Cath Report ---
CARDIAC CATHETERIZATION DATE OF PROCEDURE: 12/08/2021 INDICATION: Coronary artery disease with unstable angina. HISTORY: The patient is a 66 year old male with a known history of coronary artery disease with previous coronary artery bypass surgery with a left internal mammary artery graft to the left anterior descending coronary artery and a saphenous vein graft to an obtuse marginal branch as well as previous stents to the vein graft to the obtuse marginal branch. He presented to the hospital with chest discomfort concerning for unstable angina. He had negative troponin levels. He is now referred for further evaluation with a cardiac catheterization. Given his current clinical status, he is considered vulnerable. He has no history of heart failure. PROCEDURES PERFORMED: 1. Left heart catheterization with hemodynamic measurements. 2. Diagnostic [place] coronary angiography. 3. Diagnostic bypass graft angiography. 4. Ascending aortography. PROCEDURE DESCRIPTION: After informed consent and in the fasting state, left heart catheterization was performed through the right femoral artery utilizing a 6 Maldivian system by percutaneous approach. Standard 6 Maldivian Luis Antonio catheters were utilized for the diagnostic portion of the procedure. A 6 [place]ian pigtail was utilized for the ascending aortography. All catheters were exchanged over a guidewire. Following the procedure, a right femoral arterial angiogram revealed the common femoral and profundofemoral artery to have mild diffuse disease. The sheath entered in the superficial femoral artery but the vessel was a good size. A Mynx closure device was deployed with good hemostasis. RESULTS: HEMODYNAMICS: The aortic pressure was 158/90 mmHg. The left ventricular pressure was 139/0 mmHg with a left ventricular end-diastolic pressure of 32 mmHg. There was no significant pressure gradient upon pullback across aortic valve. CORONARY ANGIOGRAPHY: The coronary arteries were calcified. Left main coronary artery: Free of significant disease. Left anterior descending coronary artery: Diffuse up to 70% stenosis from the proximal down to the mid segment and totally occluded after the fourth small diagonal branch with TRIP 0 flow beyond the occlusion. There are 4 small diagonal branches which are diffusely diseased but these are approximately 1.5 mm vessels at best. Left circumflex coronary artery: Dominant and there is a 70% stenosis in the ostium with TIRP-2 flow. This stenosis involves a small obtuse marginal branch. There is a second obtuse marginal branch that is flush occluded but is grafted. Right coronary artery: Small, nondominant and free of significant disease. GRAFT ANGIOGRAPHY: Left internal mammary artery graft to left anterior descending coronary artery: Widely patent with good distal runoff. Saphenous vein graft to obtuse marginal branch: Widely patent with good distal runoff. There is a stent covering the majority of the midportion of the graft which is widely patent. ASCENDING AORTOGRAPHY: Ascending aortography was performed in the AP view through a 6 Maldivian pigtail catheter utilizing 30 mL of contrast by power injection. Only the 1 saphenous vein graft to the obtuse marginal system was seen arising from the aorta. There was no evidence of aortic regurgitation. IMPRESSION: 1. Systemic hypertension with elevated left ventricular end-diastolic pressure. 2. Severe two-vessel coronary artery disease in a left dominant system as outlined above. 3. Patent left internal mammary artery graft to left anterior descending co ronary artery. 4. Patent saphenous vein graft to obtuse marginal branch with patent stents in the body of the graft. 5. The patient is known to have normal left ventricular systolic function with an estimated ejection fraction of 55-60% by echocardiogram obtained on 12/06/2021. 6. The patient will be continued on aspirin, beta-chance and statin medication. I will also add long-acting nitrates. I would anticipate discharge tomorrow. If he develops recurrent chest discomfort, we may need to consider in tervening on the ostium of the left circumflex coronary artery. This would most likely alf the small diagonal branches as well as the small first obtuse marginal branch so it would be preferable to treat him medically. Certain portions of this document may have been dictated utilizing voice recognition technology. Inherent to this technology, typographical and grammatical errors may exist. As much as I am diligent to identify and correct these mistakes, some errors may remain in the document. SARINA NOONAN JR, MD Dec 08, 2021 11:14
[2021-12-08] MEDS ORDERED: ISOSORBIDE MONONITRATE 30 MG (IMDUR) TAB PO ONE (11:30)
[2021-12-08] MEDS ORDERED: NS IV 1000 ML 1,000 ML ONE (11:33)
[2021-12-08 11:36] VITALS: BP 135/69
--- NOTE | 2021-12-08 13:07 | Progress Note - Hospitalist ---
TRANG WILLARD 12/08/21 1307: Subjective HPI/CC On Admission Date Seen by Provider: Dec 08, 2021 Time Seen by Provider: 11:00 CC: Chest pain with acute kidney injury HPI: This is a 66 yr old male, previous bypass due to CAD. He presented with unstable angina after what was thought to be a STEMI. It ended up being hyperkalemia peaked T waves. Potassium was 5.7, that was treated and improved to 4.6 with IV fluids. Holding beta chance due to bradycardia. Creatinine was 3.43 prompting nephrology consult. Updated pt on plan Subjective/Events-last exam Hospital Course: Daniel Cortez is a 66 yo male with past medical history of CABG, cardiac stent x6, and T2DM who was admitted on 12/05 for chest pain. On arrival to [place] ED his EKG was flagged as an inferior stemi, whoever after review by the piano machine operator it was determined that the EKG did not meet criteria for a STEMI and troponins were negative. On arrival the patient was also found to have an NINA and elevated potassium levels. He was started on a weight based heparin protocol, a statin, aspirin, and beta chance. His creatinine and potassium improved with normal saline. An echo was performed which revealed an EF of 55-60%. He underwent cardiac catheterization . During his hospital stay he also developed tremors and full body aches and received a CT head w/out which was unremarkable. He is being discharged home in stable condition with instructions to follow up with his PCP and cardiology. Today: Patient is lying comfortably in bed prior to cardiac cath. He denies any chest pain or difficulty breathing and reports his tremors have resolved. Review of Systems General: No Chills, No Night Sweats HEENT: No Head Aches, No Visual Changes Pulmonary: No Dyspnea, No Cough Cardiovascular: No: Chest Pain, Palpitations Gastrointestinal: No: Nausea, Vomiting, Abdominal Pain Genitourinary: No Dysuria, No Frequency Neurological: No: Confusion Objective Exam Vital Signs Vital Signs Date Time Temp Pulse Resp B/P (MAP) Pulse Ox O2 Delivery O2 Flow Rate FiO2 12/08/21 11:36 36.4 68 16 135/69 (91) 94 Room Air 12/08/21 07:27 Capillary Refill : Less Than 3 Seconds General Appearance: No Apparent Distress HEENT: Moist Mucous Membranes Neck: Non Tender, Supple Respiratory: Chest Non Tender, Lungs Clear Cardiovascular: Regular Rate, Rhythm, No JVD Gastrointestinal: Normal Bowel Sounds, Non Tender, Soft Back: Normal Inspection Extremity: Normal Capillary Refill Neurologic/Psychiatric: Alert, Oriented x3 Skin: Normal Color, Warm/Dry Lymphatic: No Adenopathy Results/Procedures Lab Laboratory Tests 12/08/21 05:50 Patient resulted labs reviewed. Assessment/Plan Assessment and Plan Assess & Plan/Chief Complaint 1) Unstable Angina * Cards following, appreciate recs * Troponin negative * EKG no sign of STEMI * Weight based heparin infusion protocol discontinued * Restart beta chance * Start statin * ASA 81 * Cardiology cath today (12/08) 2) NINA (resolved) * Nephrology consulted, appreciate recs * Cr significantly improved to 0.98 today * IVF and continue to monitor * Pena removed, voiding trial successful * Hold lisinopril 3) T2DM * SSI 4) Anemia * Iron studies, folate, and B12 WNL * Hgb 10.7 today 5) Tremors (resolved) Dispo: Continue care on fourth floor on Tele for further management and PT/OT. Clinical Quality Measures AMI/AHF: ASA po Prior to arrival: Yes STEFANY MUÑOZ DO 12/08/212050: Subjective Subjective/Events-last exam Cath completed without any intervention Patient sedated at bedside Review of Systems General: Fatigue, Malaise Objective Exam General Appearance: No Apparent Distress, WD/WN, Chronically ill Assessment/Plan Assessment and Plan Assess & Plan/Chief Complaint Discharge home when okay with cardiology Supervisory-Addendum Brief Verification & Attestation Participated in pt care: history, MDM, physical Personally performed: exam, history, MDM, supervision of care Care discussed with: Medical Student Procedures: n/a Results interpretation: Verified all documentation Verification and Attestation of Medical Student E/M Service A medical student performed and documented this service in my presence. I reviewed and verified all information documented by the medical student and made modifications to such information, when appropriate. I personally performed the physical exam and medical decision making. Stefany Muñoz Dec 08, 2021,20:51 TRANG WILLARD Dec 08, 2021 13:07 STEFANY MUÑOZ DO Dec 08, 2021 20:51
[2021-12-08 16:13] VITALS: BP 117/74
[2021-12-08 19:39] VITALS: BP 139/77
[2021-12-08 23:54] VITALS: BP 112/62
[2021-12-09 03:55] VITALS: BP 149/72
[2021-12-09] MEDS: THIAMINE 100 MG (VITAMIN B-1) TAB PO SCH (05:19)
[2021-12-09] MEDS: MULTIVIT W/MINERALS TAB (THERAGRAN M) PO SCH (05:19)
[2021-12-09 05:40] LABS: BASOPHILS # (AUTO) 0.1 10^3/uL (0.0-0.1); BASOPHILS % (AUTO) 1 % (0-10); EOSINOPHILS # (AUTO) 0.8 10^3/uL (0.0-0.3); EOSINOPHILS % (AUTO) 14 % (0-10); HEMATOCRIT 30 % (40-54); LYMPHOCYTES % (AUTO) 17 % (12-44); MEAN CORPUSCULAR HEMOGLOBIN 29 pg (25-34); MEAN CORPUSCULAR HGB CONC 33 g/dL (32-36); MEAN CORPUSCULAR VOLUME 88 fL (80-99); MEAN PLATELET VOLUME 10.8 fL (9.0-12.2); MONOCYTES # (AUTO) 0.5 10^3/uL (0.0-1.0); MONOCYTES % (AUTO) 9 % (0-12); NEUTROPHILS # (AUTO) 3.4 10^3/uL (1.8-7.8); NEUTROPHILS % (AUTO) 59 % (42-75); PLATELET COUNT 156 10^3/uL (130-400); WHITE BLOOD COUNT 5.8 10^3/uL (4.3-11.0)
[2021-12-09 06:02] LABS: ALBUMIN 3.3 GM/DL (3.2-4.5); BILIRUBIN,TOTAL 0.5 MG/DL (0.1-1.0); CALCIUM 8.1 MG/DL (8.5-10.1); CREATININE SERUM 1.03 MG/DL (0.60-1.30); MAGNESIUM 1.4 MG/DL (1.6-2.4); POTASSIUM 4.6 MMOL/L (3.6-5.0); TOTAL PROTEIN 5.9 GM/DL (6.4-8.2)
[2021-12-09 08:08] VITALS: BP 136/69
[2021-12-09] MEDS ORDERED: MTP100TCR PO (08:29)
[2021-12-09] MEDS ORDERED: ISOS30TA82 PO (08:29)
--- NOTE | 2021-12-09 08:42 | Progress Note - Hospitalist ---
TRANG WILLARD 12/09/21 0842: Subjective HPI/CC On Admission Date Seen by Provider: Dec 09, 2021 Time Seen by Provider: 08:30 CC: Chest pain with acute kidney injury HPI: This is a 66 yr old male, previous bypass due to CAD. He presented with unstable angina after what was thought to be a STEMI. It ended up being hyperkalemia peaked T waves. Potassium was 5.7, that was treated and improved to 4.6 with IV fluids. Holding beta chance due to bradycardia. Creatinine was 3.43 prompting nephrology consult. Updated pt on plan Subjective/Events-last exam Hospital Course: Daniel Cortez is a 66 yo male with past medical history of CABG, cardiac stent x6, and T2DM who was admitted on 12/05 for chest pain. On arrival to [place] ED his EKG was flagged as an inferior stemi, whoever after review by the room service bellhop it was determined that the EKG did not meet criteria for a STEMI and troponins were negative. On arrival the patient was also found to have an NINA and elevated potassium levels. He was started on a weight based heparin protocol, a statin, aspirin, and beta chance. His creatinine and potassium improved with normal saline. An echo was performed which revealed an EF of 55-60%. He underwent cardiac catheterization which revealed severe two vessel coronary artery disease and medical management was recommended by cardiology. A long acting nitrate was added to his current regimen of aspirin, beta chance, and statin. During his hospital stay he also developed tremors and full body aches and received a CT head w/out which was unremarkable. He is being discharged home in stable condition with instructions to follow up with his PCP and cardiology. Today: Patient reports no acute events overnight. He is not experiencing any chest pain or shortness of breath and is eager to go home. Review of Systems General: No Chills, No Night Sweats HEENT: No Head Aches, No Visual Changes Pulmonary: No Dyspnea, No Cough Cardiovascular: No: Chest Pain, Palpitations Gastrointestinal: No: Nausea, Vomiting, Abdominal Pain Genitourinary: No Dysuria, No Frequency Neurological: No: Confusion Objective Exam Vital Signs Vital Signs Date Time Temp Pulse Resp B/P (MAP) Pulse Ox O2 Delivery O2 Flow Rate FiO2 12/09/21 08:08 36.8 64 18 136/69 (91) 96 Room Air 12/08/21 07:27 Capillary Refill : Less Than 3 Seconds General Appearance: No Apparent Distress HEENT: PERRL/EOMI, Moist Mucous Membranes Neck: Non Tender, Supple Respiratory: Chest Non Tender, Lungs Clear, Normal Breath Sounds Cardiovascular: Regular Rate, Rhythm, No Edema, No JVD Gastrointestinal: Normal Bowel Sounds, Non Tender, Soft Back: Normal Inspection Extremity: Normal Capillary Refill Neurologic/Psychiatric: Alert, Oriented x3 Skin: Normal Color, Warm/Dry Lymphatic: No Adenopathy Results/Procedures Lab Laboratory Tests 12/09/21 05:20 Patient resulted labs reviewed. Assessment/Plan Assessment and Plan Assess & Plan/Chief Complaint 1) Unstable Angina * Cards following, appreciate recs * Troponin negative * EKG no sign of STEMI * beta chance * statin * ASA 81 * Cardiology cath revealed severe two vessel coronary artery disease, medical management recommended * Started on long acting Nitrate 2) NINA (resolved) * Nephrology consulted, appreciate recs * Cr stable * IVF and continue to monitor * Pena removed, voiding trial successful * Hold lisinopril 3) T2DM * SSI 4) Anemia * Iron studies, folate, and B12 WNL * Hgb 10.0 today 5) Tremors (resolved) Dispo: Discharge home today in stable condition pending cardiology recommendations. Clinical Quality Measures AMI/AHF: ASA po Prior to arrival: Yes STEFANY MUÑOZ DO 12/09/212038: Supervisory-Addendum Brief Verification & Attestation Participated in pt care: history, MDM, physical Personally performed: exam, history, MDM, supervision of care Care discussed with: Medical Student Procedures: n/a Results interpretation: Verified all documentation Verification and Attestation of Medical Student E/M Service A medical student performed and documented this service in my presence. I reviewed and verified all information documented by the medical student and made modifications to such information, when appropriate. I personally performed the physical exam and medical decision making. Stefany Muñoz Dec 09, 2021,20:39 TRANG WILLARD Dec 09, 2021 08:42 STEFANY MUÑOZ DO Dec 09, 2021 20:39
--- NOTE | 2021-12-09 08:43 | Cardiology Progress Note ---
Progress Note-Cardiology Events since last exam Date Seen by Provider: Dec 09, 2021 Time Seen by Provider: 08:41 Events since last exam I am following him due to coronary artery disease with unstable angina. He did not have a myocardial infarction. He feels much better. He denies chest discomfort. He denies dyspnea, palpitations, syncope, or ankle edema. He would like to go home today. Certain portions of this document may have been dictated utilizing voice recognition technology. Inherent to this technology, typographical and grammatical errors may exist. As much as I am diligent to identify and correct these mistakes, some errors may remain in the document. Vitals Last set of Vitals Signs Vital Signs 12/08/21 12/09/21 03:55 11:15 Temp 36.8 Pulse 64 Resp 18 B/P (MAP) 136/69 Pulse Ox 96 O2 Delivery Room Air O2 Flow Rate 2.00 Labs Labs Laboratory Tests 12/09/21 05:20 Exam Vital Signs Vital Signs Date Time Temp Pulse Resp B/P (MAP) Pulse Ox O2 Delivery O2 Flow Rate FiO2 12/09/21 11:15 36.8 64 18 136/69 96 Room Air 12/08/21 07:27 Physical Exam General: Alert. No acute distress. Eye: No xanthelasma. HENT: Normocephalic. Neck: Jugular venous pressure does not appear elevated. Respiratory: Lungs are clear to auscultation. Respirations are non-labored. Breath sounds are equal. Symmetrical chest wall expansion. Cardiovascular: Normal rate. Regular rhythm. No murmur. No gallop. No edema. Gastrointestinal: Soft. Normal bowel sounds. Skin: Warm. Dry. Neurologic: Alert and oriented to person, place, time. Cranial nerves 3-11 grossly intact. Psychiatric: Cooperative. Appropriate mood & affect. Labs Laboratory Tests Test 12/09/21 05:20 Range/Units White Blood Count 5.8 4.3-11.0 10^3/uL Red Blood Count 3.43 L 4.30-5.52 10^6/uL Hemoglobin 10.0 L 13.3-17.7 g/dL Hematocrit 30 L 40-54 % Mean Corpuscular Volume 88 80-99 fL Mean Corpuscular Hemoglobin 29 25-34 pg Mean Corpuscular Hemoglobin Concent 33 32-36 g/dL Red Cell Distribution Width 15.0 H 10.0-14.5 % Platelet Count 156 130-400 10^3/uL Mean Platelet Volume 10.8 9.0-12.2 fL Immature Granulocyte % (Auto) 0 % Neutrophils (%) (Auto) 59 42-75 % Lymphocytes (%) (Auto) 17 12-44 % Monocytes (%) (Auto) 9 0-12 % Eosinophils (%) (Auto) 14 H 0-10 % Basophils (%) (Auto) 1 0-10 % Neutrophils # (Auto) 3.4 1.8-7.8 10^3/uL Lymphocytes # (Auto) 1.0 1.0-4.0 10^3/uL Monocytes # (Auto) 0.5 0.0-1.0 10^3/uL Eosinophils # (Auto) 0.8 H 0.0-0.3 10^3/uL Basophils # (Auto) 0.1 0.0-0.1 10^3/uL Immature Granulocyte # (Auto) 0.0 0.0-0.1 10^3/uL Sodium Level 136 135-145 MMOL/L Potassium Level 4.6 3.6-5.0 MMOL/L Chloride Level 106 98-107 MMOL/L Carbon Dioxide Level 21 21-32 MMOL/L Anion Gap 9 5-14 MMOL/L Blood Urea Nitrogen 12 7-18 MG/DL Creatinine 1.03 0.60-1.30 MG/DL Estimat Glomerular Filtration Rate 81 BUN/Creatinine Ratio 12 Glucose Level 114 H 70-105 MG/DL Calcium Level 8.1 L 8.5-10.1 MG/DL Corrected Calcium 8.7 8.5-10.1 MG/DL Magnesium Level 1.4 L 1.6-2.4 MG/DL Total Bilirubin 0.5 0.1-1.0 MG/DL Aspartate Amino Transf (AST/SGOT) 18 5-34 U/L Alanine Aminotransferase (ALT/SGPT) 19 0-55 U/L Alkaline Phosphatase 104 40-136 U/L Total Protein 5.9 L 6.4-8.2 GM/DL Albumin 3.3 3.2-4.5 GM/DL Diagnosis/Problems Diagnosis/Problems (1) Coronary artery disease with unstable angina pectoris Assessment & Plan: He ruled out for a myocardial infarction. His chest disco mfort now seems to have resolved. His cardiac catheterization showed patent grafts with severe [place] disease. He is not graft dependent. We will continue guideline directed medical therapy with aspirin, clopidogrel, beta-chance, ranolazine, and long-acting nitrates and statin medication. From a cardiac standpoint, he can be discharged home. If he fails medical therapy and has recurrent angina, then I will consider stent to the proximal left circumflex coronary artery as an outpatient. (2) Acute kidney injury Assessment & Plan: His creatinine level was markedly elevated at the time of admission but has now improved. Nephrology has seen the patient. There is no indication for renal replacement therapy at this time. (3) Primary hypertension Assessment & Plan: I have adjusted his metoprolol. I would recommend that we do not restart LESLEY inhibitor until we make sure his renal function is stable as an outpatient. (4) Mixed hyperlipidemia Assessment & Plan: Continue atorvastatin 80 mg once daily which she was taking at home. (5) Hyperkalemia Status: Acute Assessment & Plan: This resolved as his renal function improved. (6) Tremor Assessment & Plan: He denies alcohol or other illegal drug use other than marijuana. I would question whether or not he may have had a baseline essential tremor that was masked by the metoprolol that he was taking. The hospitalist has ordered CIWA protocol in case he is not telling truth about alcohol use. (7) Cigarette smoker Assessment & Plan: He needs to quit smoking. SARINA NOONAN JR, MD Dec 09, 2021 08:43
[2021-12-09] MEDS ORDERED: ISOSORBIDE MONONITRATE 30 MG (IMDUR) TAB PO SCH (09:00)
[2021-12-09] MEDS ORDERED: RANOLAZINE ER 500 MG TAB (RANEXA) PO SCH (09:00)
[2021-12-09] MEDS: ASPIRIN 81 MG CHEW (CHILDREN'S ASA) PO SCH (09:17)
[2021-12-09] MEDS: MAGNESIUM OXIDE (MAG-OX)400 MG TAB PO SCH (09:18)
[2021-12-09] MEDS: PANTOPRAZOLE 40 MG (PROTONIX) TAB PO SCH (09:18)
[2021-12-09] MEDS: FOLIC ACID 1 MG TAB PO SCH (09:18)
[2021-12-09] MEDS: SODIUM BICARBONATE 650 MG TABLET PO SCH (09:18)
[2021-12-09] MEDS: meTOprolol SUCCINATE 100 MG (TOPROL XL) TAB PO SCH (09:18)
--- NOTE | 2021-12-09 09:49 | Physical Therapy Progress Note ---
Therapy Progress Note Patient observed up independently without difficulty and patient declined need for skilled PT. Nursing confirms. No PT indicated. HUONG BONILLA PT Dec 09, 2021 09:49
--- NOTE | 2021-12-09 10:44 | Discharge Summary ---
Discharge Summary Hospital Course Was the Problem List Reviewed?: Yes Problems/Dx: (1) Coronary artery disease with unstable angina pectoris (2) Acute kidney injury (3) Primary hypertension (4) Mixed hyperlipidemia (5) Hyperkalemia Status: Acute (6) Tremor (7) Cigarette smoker Hospital Course Date of Admission: Dec 05, 2021 at 03:14 Admission Diagnosis : Family Physician/Provider: Date of Discharge: 12/09/21 Discharge Diagnosis: [ ] Hospital Course: Hospital Course: Daniel Cortez is a 66 yo male with past medical history of CABG, cardiac stent x6, and T2DM who was admitted on 12/05 for chest pain. On arrival to [place] ED his EKG was flagged as an inferior stemi, whoever after review by the company accountant it was determined that the EKG did not meet criteria for a STEMI and troponins were negative. On arrival the patient was also found to have an NINA and elevated potassium levels. He was started on a weight based heparin protocol, a statin, aspirin, and beta chance. His creatinine and potassium improved with normal saline. An echo was performed which revealed an EF of 55-60%. He underwent cardiac catheterization which revealed severe two vessel coronary artery disease and medical management was recommended by cardiology. A long acting nitrate was added to his current regimen of aspirin, beta chance, and statin. During his hospital stay he also developed tremors and full body aches and received a CT head w/out which was unremarkable. He is being discharged home in stable condition with instructions to follow up with his PCP and cardiology. Labs and Pending Lab Test: Laboratory Tests 12/09/21 05:20: White Blood Count 5.8, Red Blood Count 3.43L, Hemoglobin 10.0L, Hematocrit 30L, Mean Corpuscular Volume 88, Mean Corpuscular Hemoglobin 29, Mean Corpuscular Hemoglobin Concent 33, Red Cell Distribution Width 15.0H, Platelet Count 156, Mean Platelet Volume 10.8, Immature Granulocyte % (Auto) 0, Neutrophils (%) (Auto) 59, Lymphocytes (%) (Auto) 17, Monocytes (%) (Auto) 9, Eosinophils (%) (Auto) 14H, Basophils (%) (Auto) 1, Neutrophils # (Auto) 3.4, Lymphocytes # (Auto) 1.0, Monocytes # (Auto) 0.5, Eosinophils # (Auto) 0.8H, Basophils # (Auto) 0.1, Immature Granulocyte # (Auto) 0.0, Sodium Level 136, Potassium Level 4.6, Chloride Level 106, Carbon Dioxide Level 21, Anion Gap 9, Blood Urea Nitrogen 12, Creatinine 1.03, Estimat Glomerular Filtration Rate 81, BUN/Creatinine Ratio 12, Glucose Level 114H, Calcium Level 8.1L, Corrected Calcium 8.7, Magnesium Level 1.4L, Total Bilirubin 0.5, Aspartate Amino Transf (AST/SGOT) 18, Alanine Aminotransferase (ALT/SGPT) 19, Alkaline Phosphatase 104, Total Protein 5.9L, Albumin 3.3 Microbiology 12/05/21 Urine Culture - Final, Complete NO GROWTH 12/05/21 MRSA Screen - Final, Complete MRSA not isolated Home Meds Active Metoprolol Succinate 100 Mg Tab.er.24h 100 Mg PO DAILY Isosorbide Mononitrate ER (Isosorbide Mononitrate) 30 Mg Tab.er.24h 30 Mg PO DAILY Reported Aspirin EC (Aspirin) 81 Mg Tablet.dr 81 Mg PO DAILY Metformin HCl 500 Mg Tablet 500 Mg PO BID Atorvastatin Calcium 80 Mg Tablet 80 Mg PO HS Cyclobenzaprine HCl 10 Mg Tablet 10 Mg PO BID PRN Clopidogrel (Clopidogrel Bisulfate) 75 Mg Tablet 75 Mg PO DAILY Paroxetine HCl 30 Mg Tablet 30 Mg PO DAILY Lisinopril 30 Mg Tablet 30 Mg PO DAILY Metoprolol Succinate 50 Mg Tab.er.24h 50 Mg PO DAILY Lisinopril 20 Mg Tablet 20 Mg PO DAILY Paroxetine HCl 30 Mg Tablet 30 Mg PO DAILY Metoprolol Succinate 50 Mg Tab.er.24h 50 Mg PO DAILY Clopidogrel (Clopidogrel Bisulfate) 75 Mg Tablet 75 Mg PO DAILY Aspirin 81 Mg Tab.chew 81 Mg PO DAILY Metformin HCl 500 Mg Tablet 500 Mg PO BID Ranexa (Ranolazine) 500 Mg Tab.er.12h 500 Mg PO BID Atorvastatin Calcium 80 Mg Tablet 80 Mg PO DAILY Assessment/Pt Instructions pcp 1 week Discharge Planning: <30 minutes discharge planning Discharge Instructions Discharge Diet: No Restrictions Discharge Physical Examination Vital Signs Vital Signs Date Time Temp Pulse Resp B/P (MAP) Pulse Ox O2 Delivery O2 Flow Rate FiO2 12/09/21 08:45 96 Room Air 12/09/21 08:08 36.8 64 18 136/69 (91) 12/08/21 07:27 General Appearance: No Apparent Distress, WD/WN, Chronically ill Allergies: Coded Allergies: No Known Drug Allergies (Unverified , 12/05/21) Discharge Summary Date of Admission Dec 05, 2021 at 03:14 Date of Discharge Discharge Date: Dec 09, 2021 Admission Diagnosis Unstable angina NINA on CKD Hyperkalemia CAD HTN HLP Plan: Monitor creat Nephrology appreciated Discharge Diagnosis Discharge home when okay with cardiology (1) Coronary artery disease with unstable angina pectoris Assessment & Plan: He ruled out for myocardial infarction. His chest discomfort now seems to have resolved. His cardiac catheterization showed patent grafts with severe lime disease. He is not graft dependent. We will continue guideline directed medical therapy with aspirin, clopidogrel, beta-bl ocker, ranolazine, and long-acting nitrates and statin medication. From a cardiac standpoint, he can be discharged home. If he fails medical therapy and has recurrent angina, then I will consider stent to the proximal left circumflex coronary artery as an outpatient. (2) Acute kidney injury Assessment & Plan: His creatinine level was markedly elevated at the time of admission but has now improved. Nephrology has seen the patient. There is no indication for renal replacement therapy at this time. (3) Primary hypertension Assessment & Plan: I have adjusted his metoprolol. I would recommend that we do not restart LESLEY inhibitor until we make sure his renal function is stable as an outpatient. (4) Mixed hyperlipidemia Assessment & Plan: Continue atorvastatin 80 mg once daily which she was taking at home. (5) Hyperkalemia Status: Acute Assessment & Plan: This resolved as his renal function improved. (6) Tremor Assessment & Plan: He denies alcohol or other illegal drug use other than marijuana. I would question whether or not he may have had a baseline essential tremor that was masked by the metoprolol that he was taking. The hospitalist has ordered CIWA protocol in case he is not telling truth about alcohol use. (7) Cigarette smoker Assessment & Plan: He needs to quit smoking. Clinical Quality Measures AMI/AHF: ASA po Prior to arrival: Yes MARIA M MUÑOZ DO Dec 09, 2021 10:44
[2021-12-09 11:15] VITALS: BP 136/69
== END 2021-12-09 11:15 | disposition home or self-care (01) | DRG 287 ==
LOC: ER FS 00:04 → CATH 00:38 → ICU 03:14 → 4TH 12-07 14:33
PROVIDERS: ADMIT Internal Medicine; ATTEND Internal Medicine
PROC: 4A023N7 Measurement of Cardiac Sampling and Pressure, Left Heart, Percutaneous Approach (ICD-10-PCS; principal; 2021-12-08)
PROC: B2111ZZ Fluoroscopy of Multiple Coronary Arteries using Low Osmolar Contrast (ICD-10-PCS; 2021-12-08)
PROC: B3101ZZ Fluoroscopy of Thoracic Aorta using Low Osmolar Contrast (ICD-10-PCS; 2021-12-08)
PROC: B2131ZZ Fluoroscopy of Multiple Coronary Artery Bypass Grafts using Low Osmolar Contrast (ICD-10-PCS; 2021-12-08)
DX: I25.110 Atherosclerotic heart disease of native coronary artery with unstable angina pectoris (principal); N17.9 Acute kidney failure, unspecified; E87.2 Acidosis; E78.2 Mixed hyperlipidemia; E87.5 Hyperkalemia; R25.1 Tremor, unspecified; F17.210 Nicotine dependence, cigarettes, uncomplicated; Z95.1 Presence of aortocoronary bypass graft; Z95.5 Presence of coronary angioplasty implant and graft; I12.9 Hypertensive chronic kidney disease with stage 1 through stage 4 chronic kidney disease, or unspecified chronic kidney disease; E11.22 Type 2 diabetes mellitus with diabetic chronic kidney disease; E78.5 Hyperlipidemia, unspecified; N18.9 Chronic kidney disease, unspecified; D63.1 Anemia in chronic kidney disease; Z79.82 Long term (current) use of aspirin; Z79.84 Long term (current) use of oral hypoglycemic drugs; Z79.899 Other long term (current) drug therapy
CPT/HCPCS: 36415; 70450; 71045; 76770; 80053; 80061; 81000; 82570; 82607; 82728; 82746; 82947; 83036; 83540; 83550; 83690; 83735; 83874; 83880; 84100; 84156; 84300; 84443; 84484; 84550; 85007; 85025; 85027; 85610; 85730; 87081; 87088; 93005; 93041; 93306; 93459; 93567; 94640; 94760; 99291

== ENCOUNTER 2021-12-21 20:04 | Observation (INO) | payer MEDICARE, MEDICAID ==
[~2021-12-21] VITALS: Ht 177.8 cm; Wt 88.9 kg
[~2021-12-21 20:04] MED LIST changes: +ASPI-1238 PO; +CYCL10TA25 PO; +ISOS30TA82 PO; +LISI30TA5 PO; +MTP100TCR PO
[2021-12-21 21:44] LABS: HEMATOCRIT 44 % (40-54); HEMOGLOBIN 14.3 g/dL (13.3-17.7); MEAN CORPUSCULAR HEMOGLOBIN 29 pg (25-34); MEAN CORPUSCULAR HGB CONC 33 g/dL (32-36); MEAN CORPUSCULAR VOLUME 89 fL (80-99); MEAN PLATELET VOLUME 11.1 fL (9.0-12.2); PLATELET COUNT 306 10^3/uL (130-400); WHITE BLOOD COUNT 16.7 10^3/uL (4.3-11.0)
[2021-12-21] MEDS ORDERED: ONDANSETRON 4 MG/2 ML (SDV) Z0FRAN IVP ONE (22:00)
[2021-12-21 22:04] LABS: ALANINE AMINOTRANSFERASE 27 U/L (0-55); ALBUMIN 4.7 GM/DL (3.2-4.5); ALKALINE PHOSPHATASE 145 U/L (40-136); BILIRUBIN,DIRECT 0.2 MG/DL (0.0-0.3); BILIRUBIN,INDIRECT 0.3 MG/DL; BILIRUBIN,TOTAL 0.5 MG/DL (0.1-1.0); BUN/CREATININE RATIO 20; CALCIUM 10.6 MG/DL (8.5-10.1); CARBON DIOXIDE 17 MMOL/L (21-32); CHLORIDE 106 MMOL/L (98-107); CREATININE SERUM 2.16 MG/DL (0.60-1.30); GFR ESTIMATED 33; GLUCOSE 159 MG/DL (70-105); SODIUM 138 MMOL/L (135-145); TOTAL PROTEIN 8.5 GM/DL (6.4-8.2)
[2021-12-21] MEDS ORDERED: morphine INJ 10 MG/ML 1ML (SYR OR VIAL) IVP STA (22:06)
[2021-12-21 22:15] LABS: CLARITY,URINE CLEAR; COLOR,URINE DARK YELLOW; GLUCOSE, URINE (UA) 1+ (NEGATIVE); KETONES,URINE NEGATIVE (NEGATIVE); LEUKOCYTE ESTERASE ,URINE NEGATIVE (NEGATIVE); NITRITE,URINE NEGATIVE (NEGATIVE); PH,URINE 5.5 (5-9); PROTEIN,URINE 1+ (NEGATIVE)
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
[2021-12-21 22:34] LABS: BACTERIA,URINE TRACE /HPF; RBC,URINE >100 /HPF
[2021-12-21 22:35] LABS: BILIRUBIN,URINE NEGATIVE (NEGATIVE)
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
[2021-12-21 23:28] LABS: POTASSIUM 6.5 MMOL/L (3.6-5.0)
[2021-12-21] MEDS ORDERED: NS IV 1000 ML 1,000 ML IV SCH ×2 (23:30)
[2021-12-22] VITALS (7 sets, daily range): BP systolic 116–178; BP diastolic 69–82
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
[2021-12-22] MEDS ORDERED: ONDANSETRON 4 MG/2 ML (SDV) Z0FRAN IV PRN (02:15)
[2021-12-22] MEDS ORDERED: morphine INJ 10 MG/ML 1ML (SYR OR VIAL) IV PRN (02:15)
[2021-12-22] MEDS: NS IV 1000 ML 1,000 ML IV SCH ×4 (02:16→22:32)
[2021-12-22] MEDS: HYDROcodone/APAP 5 MG/325 MG (LORTAB) TAB PO PRN ×4 (05:41→22:32)
[2021-12-22 05:50] LABS: BASOPHILS % (AUTO) 0 % (0-10); EOSINOPHILS % (AUTO) 0 % (0-10); HEMATOCRIT 38 % (40-54); HEMOGLOBIN 12.2 g/dL (13.3-17.7); LYMPHOCYTES # (AUTO) 1.5 10^3/uL (1.0-4.0); LYMPHOCYTES % (AUTO) 13 % (12-44); MEAN CORPUSCULAR HEMOGLOBIN 29 pg (25-34); MEAN CORPUSCULAR HGB CONC 33 g/dL (32-36); MEAN CORPUSCULAR VOLUME 88 fL (80-99); MEAN PLATELET VOLUME 11.2 fL (9.0-12.2); MONOCYTES # (AUTO) 0.7 10^3/uL (0.0-1.0); MONOCYTES % (AUTO) 6 % (0-12); NEUTROPHILS # (AUTO) 9.4 10^3/uL (1.8-7.8); NEUTROPHILS % (AUTO) 80 % (42-75); PLATELET COUNT 252 10^3/uL (130-400); WHITE BLOOD COUNT 11.7 10^3/uL (4.3-11.0)
[2021-12-22 06:07] LABS: CALCIUM 8.8 MG/DL (8.5-10.1); CREATININE SERUM 1.7 MG/DL (0.60-1.30); POTASSIUM 6.1 MMOL/L (3.6-5.0)
[2021-12-22] MEDS ORDERED: ISOS30TA82 PO (11:53)
[2021-12-22] MEDS ORDERED: MTP100TCR PO (11:53)
[2021-12-22] MEDS ORDERED: HYDR-3817 PO (14:21)
--- NOTE | 2021-12-22 14:22 | Discharge Inst-Surgical ---
D/C Lap Instructions-CECY New, Converted, or Re-Newed RX: RX on Chart Follow Up Appt in 2 weeks Activity as tolerated No driving for 24 hours No driving while on pain medications Incentive Spirometry use every 2 hours while awake Regular Diet Symptoms to Report: Fever over 101 degree F, Nausea/Vomiting Infection Signs and Symptoms to report: Increased redness, Foul odor of wound, Increased drainage Bathing instructions: May shower Operative Area Clean/Dry; Keep incision clean/dry If any problems/questions: Contact your physician or go to Emergency Room BRANDO SAM MD Dec 22, 2021 14:22
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
[2021-12-23] MEDS: HYDROcodone/APAP 5 MG/325 MG (LORTAB) TAB PO PRN ×2 (03:12→08:27)
[2021-12-23 04:00] VITALS: BP 175/90
[2021-12-23] MEDS: NS IV 1000 ML 1,000 ML IV SCH (05:00)
[2021-12-23 08:00] VITALS: BP 177/82
[2021-12-23] MEDS ORDERED: SENNA W/DOCUSATE (SENOKOT S) TABLET PO SCH (09:00)
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
[2021-12-23 12:00] VITALS: BP 147/90
== END 2021-12-23 12:14 | disposition home or self-care (01) ==
LOC: EDUNIT# 20:04 → ER 20:06 → EDLOC 23:59 → INTOOBSV 23:59 → 4TH 23:59
PROVIDERS: ADMIT Surgery; ATTEND Surgery
DX: S42.021A Displaced fracture of shaft of right clavicle, initial encounter for closed fracture (principal); I25.10 Atherosclerotic heart disease of native coronary artery without angina pectoris; I12.9 Hypertensive chronic kidney disease with stage 1 through stage 4 chronic kidney disease, or unspecified chronic kidney disease; N18.9 Chronic kidney disease, unspecified
CPT/HCPCS: 70450; 71045; 71250; 72125; 72170; 73000; 74176; 80048 ×2; 80076; 81000; 85025; 85027; 93005; 93041; 99285; A4565 ×2; G0480; 36415; 80320; 96361; 96376; G0378

== ENCOUNTER → 2022-04-17 | Outpatient (CLI) | payer MEDICARE, MEDICAID ==
[~2022-04-17] MED LIST changes: +HYDR-3817 PO
--- NOTE | 2022-04-17 15:27 | Diagnostic Imaging Report ---
INDICATION: Followup fracture. COMPARISON: 12/21/2021. FINDINGS: Two radiographic views of the right clavicle were obtained. Again identified is the nonacute fracture of the midshaft of the right clavicle. Since the previous exam, there has been interval inferior displacement of the distal fracture fragment by approximately 2 cm. There has also been interval development of partially bridging callus formation, consistent with partial interval healing. The right AC joint is maintained. The included portions of the right hemithorax are clear. No unexpected radiopaque foreign bodies are identified. IMPRESSION: Redemonstration of a partially healed nonacute fracture of the right clavicle as above. Dictated by: Dictated on workstation # [id number]
== END ==
LOC: RAD FS 13:02
PROVIDERS: ATTEND Nurse Practitioner
DX: S42.021D Displaced fracture of shaft of right clavicle, subsequent encounter for fracture with routine healing (principal); X58.XXXD Exposure to other specified factors, subsequent encounter
CPT/HCPCS: 73000

== ENCOUNTER → 2022-06-14 | Outpatient (CLI) | payer MEDICARE, MEDICAID ==
--- NOTE | 2022-06-14 15:48 | Diagnostic Imaging Report ---
EXAMINATION: Right clavicle radiographs, 2 views. COMPARISON: April 17, 2022. HISTORY: 67-year-old male, followup right clavicle fracture. FINDINGS: There is a comminuted displaced fracture of the middle third of the right clavicle which is unchanged in alignment since the prior study. There is at least partial bony callus bridging which does appear to be increased since the comparison study. The acromioclavicular joint is normally aligned. There are no prominent acromioclavicular degenerative changes. There are median sternotomy wires noted. IMPRESSION: 1. Redemonstrated comminuted displaced fracture of the middle third of the right clavicle with unchanged fracture alignment. There is interval bony callus bridging. Dictated by: Dictated on workstation # [id number]
--- NOTE | 2022-06-14 16:01 | Diagnostic Imaging Report ---
EXAMINATION: Right shoulder radiographs, 3 views. COMPARISON: Right clavicle radiograph April 17, 2022. HISTORY: 67-year-old male, right shoulder pain. History of clavicle fracture. FINDINGS: There is a comminuted displaced fracture involving the middle third of the right clavicle. There is unchanged fracture alignment. There is interval at least partial bony bridging the fracture. The acromioclavicular joint is normally aligned. There are no acromioclavicular degenerative changes. There is an area of calcific attenuation adjacent to the superior and lateral aspect of the humeral head consistent with calcific tendinitis/bursitis. Humeral head is normally positioned relative to the glenoid. There is no glenohumeral joint space loss. No new fracture is identified. IMPRESSION: 1. Interval healing of the comminuted displaced fracture of the middle third of the right clavicle. 2. Findings consistent with calcific tendinitis/bursitis. Dictated by: Dictated on workstation # [id number]
== END ==
LOC: RAD FS 14:17
PROVIDERS: ATTEND Nurse Practitioner
DX: S42.021D Displaced fracture of shaft of right clavicle, subsequent encounter for fracture with routine healing (principal); X58.XXXD Exposure to other specified factors, subsequent encounter
CPT/HCPCS: 73000; 73030

== ENCOUNTER → 2023-02-27 | Outpatient (CLI) | payer MEDICARE ==
[~2023-02-27] MED LIST changes: +REGADENOSON 0.4 MG/5 ML SYR IV ONE
[2023-02-27] MEDS: CATHETER FLUSH 10 ML SYR IVP PRN ×2 (11:11→12:49)
[2023-02-27 12:42] VITALS: BP 152/91
--- NOTE | 2023-03-01 19:31 | STRESS TEST ---
DATE OF SERVICE: 02/27/2023 RESTING AND POST REGADENOSON TECHNETIUM-99M TETROFOSMIN SPECT CT IMAGING ORDERING PHYSICIAN: Dr. Garrido. PRIMARY PHYSICIAN: Claudine Evans APRN. CLINICAL DIAGNOSIS: Coronary artery disease. Baseline images were carried out after injection of 10.95 mCi of technetium-99m tetrofosmin. This was followed by 0.4 mg regadenoson and 31.1 mCi of technetium-99m tetrofosmin for stress imaging. The electrocardiogram showed sinus rhythm at baseline. It did not change significantly with regadenoson infusion. Review of images at rest and following stress does not indicate any distinct perfusion defects consistent with significant myocardial ischemia or infarction. Gated images show normal global left ventricular systolic function with normal regional wall motion. Left ventricular ejection fraction is calculated to be 73%. CONCLUSIONS: 1. No evidence of significant myocardial ischemia or infarction on this study. 2. Normal regional wall motion. 3. Normal global left ventricular systolic function with a calculated ejection fraction of 73%. Job ID: [id number] DocumentID: [id number] Dictated Date: 03/01/2023 16:43:30 Traffic Analysis Technician Date: 03/01/2023 19:31:00 Dictated By: KEELY GARRIDO MD; MA; FACP; FACC;
== END ==
LOC: CARD 10:35
PROVIDERS: ATTEND Nurse Practitioner
DX: I25.10 Atherosclerotic heart disease of native coronary artery without angina pectoris (principal)
CPT/HCPCS: 78452; 93017; A9502